=== PATIENT | female | born 1950 | race Caucasian/White ===

== ENCOUNTER 2021-03-23 13:30 | Outpatient (REF) | payer MEDICARE, SELFPAY ==
--- NOTE | ~2021-03-23 | XR_ITS ---
EXAMINATION: XR LUMBOSACRAL SPINE CLINICAL INFORMATION: Low back pain COMPARISON: None TECHNIQUE: Three views of the lumbosacral spine. FINDINGS: Bone alignment is normal. No fracture or dislocation is seen. There is degenerative disc disease at L5-S1. There is lower lumbar spine facet arthritis. XR/XR lumbar spine 2-3V IMPRESSION: Degenerative changes.
== END 2021-03-23 13:31 | disposition home or self-care (01) ==
LOC: HO.XRAY 13:30
PROVIDERS: Absent Provider Internal Medicine; PCP Internal Medicine; Visit Provider Family Medicine
DX: M54.50 Low back pain, unspecified (principal)
CPT/HCPCS: 72100

== ENCOUNTER 2021-04-03 14:12 | Outpatient (REF) | payer MEDICARE, SELFPAY ==
--- NOTE | ~2021-04-03 | FL_ITS ---
EXAMINATION: MODIFIED BARIUM SWALLOW CLINICAL INFORMATION: Fragile esophageal dysphagia. COMPARISON: None TECHNIQUE: Modified barium swallow was performed in lateral fluoroscopy in presence of speech therapist. FINDINGS: Following oral administration of various consistencies of thin, thick barium, puree, pudding chicken coated with barium and barium cookie, there is normal oral mastication with propagation of bolus from the oral cavity through the pharynx into the upper esophagus without any evidence of obstruction or narrowing. Mild degenerative disc changes with ventral spondylosis seen C3-C4, C4-C5, C5-C6 disc levels. No lytic or sclerotic process seen. FLUOROSCOPY TIME: 0.9 minutes DOSE AREA PRODUCT: 0.659 uGy-m2 (microgray-meter squared) FL/FL barium swallow modified IMPRESSION: 1. Unremarkable modified barium examination. 2. Correlate with speech therapy results.
--- NOTE | 2021-04-04 17:34 | MHC.SL.IMP ---
Date of Plan of Treatment: 04/03/21 Onset of Symptoms/Illness: 04/03/21 Date Treatment Started: 04/03/21 Admitting Diagnosis: Hypertension Asthma Arthritis Gallbladder removed Stones Tubal ligation High cholesterol Primary Speech & Language Diagnosis: R13.12 Oropharyngeal Phase Dysphagia Reason for Today's Visit: 68097 Modified Barium Swallow Study Pre-evaluation Dietary Consistencies: Regular Pre-evaluation Liquid Consistency: Thin Pre-evaluation Medication Administration: Whole with Liquid Medical History: Modified Barium Swallow Study Fluoroscopic Evaluation of Swallowing Function CPT Code 98603 Evaluation Year: 2020 Reason for Study: Patient reports difficulty swallowing rice and meat. Referring Physician: Alexandra Marie M.D. Evaluating Clinician: Shefali Rojas M.A., CCC-ESOL TEACHER ASSISTANT Study Number: 1 Patient Name: Milagros Wright Status: Outpatient, Ambulatory Age: 70 Gender: Female MEDICAL HISTORY: Year of Onset or Diagnosis: 2020 Comorbidities: Hypertension Asthma Arthritis Gallbladder removed Stones Tubal ligation High cholesterol Current (pre-evaluation) Intake/Diet: Route: PO Diet Grade: Regular Liquid Consistencies: Thin Pre-Study Functional Oral Intake Scale (FOIS): 7- Total oral intake with no restrictions Pain: None reported at time of study SUBJECTIVE: Patient is a 70 year old female who was referred for a modified barium swallow study by Dr. Alexandra Marie. She attended this exam unaccompanied. Patient reports onset of dysphagia ?years ago,? but was unable to specify a specific time. Patient reported difficulty swallowing certain solids, such as meats and rice. She stated that she must ?swallow many times,? or ?drink water.? Patient denies any difficulty swallowing liquids. Oral Motor Exam Facial Symmetry: Symmetrical Mouth Occlusion: Normal Oral-Facial Teeth Characteristics: Dental Appliance Oral-Facial Lip Pucker Description: Normal Oral-Facial Smile (Lips) Description: Normal Oral-Facial Puff Cheeks Description: Normal Tongue Size: Normal Tongue Frenum Length: Normal Tongue Excursion Description: Normal Tongue Range of Movement Description: Normal Tongue Speed of Movement Description: Normal Tongue Strength of Movement (against opposing pressure): Normal Tongue Movement Characteristics: Normal/Absent Is patient able to manage secretions?: Yes Food and Liquid Trials: Oral Impairment: Lip Closure: Did not test Oral Impairment: Tongue Control During Bolus Hold: 0=Cohesive bolus between tongue to palatal seal Oral Impairment: Bolus Preparation/Mastication: 1=Slow prolonged chewing/mashing with complete re-collection Oral Impairment: Bolus Transport/Lingual Motion: 3=Repetitive/disorganized tongue motion Oral Impairment: Oral Residue: 2=Residue collection on oral structures Oral Impairment:Initiation of Pharyngeal Swallow: 2=Bolus head at posterior laryngeal surface of epiglottis Pharyngeal Impairment: Soft Palate Elevation: 0=No bolus between soft palate (SP)/pharyngeal wall (PW) Pharyngeal Impairment: Laryngeal Elevation: 0=Complete superior movement of thyroid cartilage (see description) Pharyngeal Impairment: Anterior Hyoid Excursion: 0=Complete anterior movement Pharyngeal Impairment: Epiglottic Movement: 0=Complete inversion Pharyngeal Impairment: Laryngeal Vestibular Closure:: 0=Complete: no air/contrast in laryngeal vestibule Pharyngeal Impairment: Pharyngeal Stripping Wave: 0=Present: complete Pharyngeal Impairment: Pharyngeal Contraction: Did not test Pharyngeal Impairment: Pharyngoesophageal Segment Openin=Complete distension and complete duration: no obstruction of flow Pharyngeal Impairment: Tongue Base (TB) Retraction: 2=Narrow column of contrast/air between TB and posterior PW Pharyngeal Impairment: Pharyngeal Residue: 0=Complete pharyngeal clearance Pharyngeal Impairment: Esophageal Clearance Upright Position: Did not test Impressions and Recommendations Clinical Observations: OBJECTIVE: Time-out: performed at 02:45 Evaluation Start: 02:30; Stop: 02:40 Patient Positioning: Seated/Reclined less than 70 degrees Viewing Planes: LATERAL ONLY Contrast: MBSImP? Standardized Protocol using commercially prepared, standardized Barium viscosities, including: Varibar? THIN LIQUID (40% w/v, <15 cps) , 1/2 Shortbread Cookie (1 x1 x.25 ) MBSImP ID: [id number] MBSImP Results: Lip closure for intraoral bolus containment could not be assessed due to logistical reasons not related to physiologic impairment. Tongue control during bolus hold maintained a cohesive bolus held between tongue to palate seal. Bolus preparation and mastication resulted in slow, prolonged chewing/mashing but with complete re-collection. Bolus transport/lingual motion was with repetitive/disorganized motion of the tongue. Oral residue was a collection on oral structures. Initiation of the pharyngeal swallow occurred as the bolus head was at the posterior laryngeal surface of the epiglottis. Soft palate elevation resulted in no bolus between the soft palate and the pharyngeal wall. Laryngeal elevation demonstrated complete superior movement of the thyroid cartilage with complete approximation of the arytenoids to the epiglottic petiole. Anterior hyoid excursion demonstrated complete anterior movement. Epiglottic movement resulted in complete inversion. Laryngeal vestibular closure was complete, as indicated by no air or contrast within the laryngeal vestibule at the height of the swallow. Pharyngeal stripping wave was present and complete. Pharyngeal contraction could not be determined due to logistical reasons not related to physiologic impairment. Pharyngoesophageal segment opening was completely distended for complete duration with no obstruction of bolus flow. Tongue base retraction allowed a narrow column of contrast or air between the retracted tongue base and the posterior pharyngeal wall. Pharyngeal residue was not present. There was complete pharyngeal clearance. Esophageal clearance in the upright position could not be assessed due to logistical reasons not related to physiologic impairment. Oral Impairment Score: 8 (absence of score, component 1) Pharyngeal Impairment Score: 2 (absence of score, component 13) Esophageal Impairment Score: --- (absence of score, component 17) Laryngeal Penetration and Aspiration: Neither penetration nor aspiration was observed in today's study with Cookie, Thin. ASSESSMENT: Clinician Assessment: This exam was conducted by a multidisciplinary team which included a speech language pathologist, radiologist, and mobile sales technician. Patient was seated upright at 90 degree position in a chair for lateral view only. Patient fed herself without difficulty. She trialed 5 mL thin liquid barium, sequential cup sip thin liquid barium, pureed solid (mixture applesauce with barium paste), and regular solid (Mona Doone cookie coated with barium paste). Patient formed cohesive bolus between tongue to palatal seal with no anterior or posterior escape of bolus. Note mildly prolonged mastication and piecemeal deglutition pattern with multiple posterior tongue movements to clear oral cavity of bolus. Mild oral residue cleared with additional spontaneous swallow. Pharyngeal swallow trigger initiated when bolus head reached posterior laryngeal surface of epiglottis. No nasopharyngeal reflux. Complete superior movement of thyroid cartilage with complete anterior hyoid movement and complete epiglottic inversion. Complete laryngeal vestibular closure. Complete pharyngeal clearance and complete distention/ complete duration with no obstruction of flow through pharyngoesophageal segment opening. No evidence of aspiration or penetration with solids and liquids during this exam. Liquid Intake Recommendation: Thin Liquid Intake Strategies: Small Sips Dietary Recommendations: Regular Medication Administration: Whole with Liquid Compensatory Strategies Recommended: Sitting Upright (90 deg) Double Swallow Small Bites and Sips Alternate Liquids/Solids Rate of Ingestion Change Supervision during eating and or drinking: None Needed Recommendation for Speech Therapy: NA:Typical Evaluation Text Comment: PLAN: Intake Recommendations: Route: PO Diet Grade: Regular Liquid Consistencies: Thin Post-Study Functional Oral Intake Scale (FOIS): 7- Total oral intake with no restrictions No evidence of aspiration or penetration during this exam. Good oral and pharyngeal clearance. Recommend patient to resume unmodified textures regular solids and thin liquids. Therapy Recommendations: Therapy will be discontinued Prognosis for Improvement: The prognosis for the patient to meet nutritional needs by mouth is excellent based on degree of impairment. Clinician - Supplemental, Miscellaneous Communication: It is important to note MBSS objective studies are snapshots in time and Patient function might vary with factors such as time of day or concomitant medical conditions. For this reason, the final treatment plan for this patient should rest with their medical care team. Additional recommendations should be considered with the totality of the Patient in mind. Thank for the opportunity to participate in the care of this patient. If you have any questions about the content of this report, please contact the [facility] at [facility], [place]. Education: Education regarding findings from today's study and plans for therapy were provided to Patient only through Verbal Instruction. Understanding was expressed by the Patient only. ? Tug Master Clinician/Clinical Fellow: No Supervisory Statement: N/A Speech Language Pathologist: Shefali Rojas M.A., [facility]-ESOL TEACHER ASSISTANT
== END 2021-04-03 14:13 | disposition home or self-care (01) ==
LOC: HO.XRAY 14:12
PROVIDERS: Visit Provider Internal Medicine
DX: R13.14 Dysphagia, pharyngoesophageal phase (principal)
CPT/HCPCS: 74230; 92611

== ENCOUNTER → 2021-06-14 08:48 | Outpatient (BNVA) | payer MEDICARE, SELFPAY | PROVIDERS: PCP Internal Medicine; Referring Provider Internal Medicine; Visit Provider Surgery | DX: Z12.11 Encounter for screening for malignant neoplasm of colon (principal) | CPT/HCPCS: 99202 ==

== ENCOUNTER 2021-08-03 11:17 | Outpatient (REF) | payer OTHER, SELFPAY ==
--- NOTE | ~2021-08-03 | US_ITS ---
EXAMINATION: US RETROPERITONEAL COMPLETE (RENAL) CLINICAL INFORMATION: Microscopic hematuria.. COMPARISON: None TECHNIQUE: Real-time imaging of the kidneys and bladder. FINDINGS: RIGHT KIDNEY: 9.1 x 4.1 x 4.8 cm (SAG x AP x TRV). The kidney is normal in size, contour, and echogenicity. Renal cortical thickness is normal. No calculi or focal parenchymal lesions. No hydronephrosis. There is anechoic cyst measuring 0.6 x 0.4 x 0.3 cm in midpole. LEFT KIDNEY: 11.8 x 5.1 x 4.7 cm cm (SAG x AP x TRV). The kidney is normal in size, contour, and echogenicity. Renal cortical thickness is normal. No calculi or focal parenchymal lesions. No hydronephrosis. There is a complex anechoic cyst with echogenic debris measuring 4.0 x 4.0 x 4.0 cm in the midpole. There is a 1.4 x 1.1 x 1.0 cm simple cyst midpole. BLADDER: Well distended and normal. Bilateral ureteral jets are demonstrated. Prevoid bladder volume is 320 mL. Postvoid bladder volume is 6.4 mL. There are a few echogenic foci with shadowing adjacent to the bladder likely related to the uterus. US/US retroperitoneal comp IMPRESSION: Bilateral renal cysts. The largest cyst midpole left kidney is complex measuring 4.0 cm. No echogenic stones or hydronephrosis. Tiny postvoid residual bladder volume. Normal bilateral ureteral jets seen.
== END 2021-08-03 11:18 | disposition home or self-care (01) ==
LOC: HO.US 11:17
PROVIDERS: Visit Provider Family Medicine
DX: R31.29 Other microscopic hematuria (principal)
CPT/HCPCS: 76770

== ENCOUNTER 2021-08-18 06:33 | Day surgery (SDC) | payer OTHER, SELFPAY ==
--- NOTE | 2021-08-17 10:58 | P.CONAN_ITS ---
Documented by User: China Tena NP 08/17/21 10:59 HPI - Anesthesia Eval Consult details Narrative: 71yo F for Colonoscopy, Possible Polypectomy PMFSH Active Problems Active Problems: All Active Problems (Updated 08/14/21 @ 12:47 by Edna Stokes, RN) Colon cancer screening (Acute) Hypertension (Acute) Morbid obesity with body mass index (BMI) of 40.0 or higher (Acute) Hyperlipidemia (Acute) Past Medical History Medical History Asthma Colon cancer screening GERD (gastroesophageal reflux disease) History of positive PPD Hyperlipidemia Hypertension Morbid obesity with body mass index (BMI) of 40.0 or higher Sleep apnea Family History Family History Mother Bone cancer Surgical History Surgical History History of tubal ligation Hx of cholecystectomy Hx of colonoscopy Social History Social History Advance Directives: No Advance Directives Information Provided: Yes Meds Allergies Allergy/AdvReac Type Severity Reaction Status Date / Time Seafood Allergy Severe DIFF.BREATHING, Uncoded 08/14/21 12:51 Itching, edema eggs Allergy Unknown Nausea, Uncoded 08/14/21 12:51 dizzy, itching SHELLFISH Allergy Unknown Unknown Uncoded 08/14/21 12:51 Home Medications Medication Instructions Recorded Confirmed Last Taken Type albuterol sulfate mg INHALATION QID PRN 06/14/21 06/14/21 Unknown History aspirin 81 mg tablet,delayed 81 mg PO DAILY 06/14/21 08/14/21 Unknown History release atorvastatin 40 mg tablet 40 mg PO BEDTIME 06/14/21 08/14/21 Unknown History cholecalciferol (vitamin D3) 50 50 mcg PO DAILY 06/14/21 08/14/21 Unknown History mcg (2,000 unit) capsule (Vitamin D3) famotidine 20 mg tablet 20 mg PO DAILY 06/14/21 08/14/21 Unknown History fluticasone propionate 110 2 puff PO BID 06/14/21 08/14/21 Unknown History mcg/actuation HFA aerosol inhaler (Flovent HFA) hydrochlorothiazide 12.5 mg capsule 12.5 mg PO DAILY 06/14/21 08/14/21 Unknown History lisinopril 40 mg tablet 40 mg PO DAILY 06/14/21 08/14/21 Unknown History loratadine 10 mg tablet 10 mg PO DAILY 06/14/21 08/14/21 Unknown History montelukast 10 mg tablet 10 mg PO QPM 06/14/21 08/14/21 Unknown History timolol maleate 0.5 % eye drops 1 drp OPHTHALMIC-RIGHT QAM 06/14/21 08/14/21 Unknown History latanoprost 0.005 % eye drops 1 drp OPHTHALMIC (EYE) BEDTIME 08/14/21 08/14/21 Unknown History Exam Exam Date and Time: August 17, 20211057 Assessment and Plan Assessment Anesthesia Assessment: Chart Reviewed Documented by User: Charu Chan MD 08/18/21 07:15 [facility] Past Medical History Medical History Asthma Colon cancer screening GERD (gastroesophageal reflux disease) History of positive PPD Hyperlipidemia Hypertension Morbid obesity with body mass index (BMI) of 40.0 or higher Sleep apnea Functional capacity: independent ambulation Patient : No Family History Family History Mother Bone cancer Family history of problems with anesthesia: No Surgical History Surgical History History of tubal ligation Hx of cholecystectomy Hx of colonoscopy History of Problems with Anesthesia: No Social History Social History Advance Directives: No Advance Directives Information Provided: Yes Meds Allergies Allergy/AdvReac Type Severity Reaction Status Date / Time Seafood Allergy Severe DIFF.BREATHING, Uncoded 08/14/21 12:51 Itching, edema eggs Allergy Unknown Nausea, Uncoded 08/14/21 12:51 dizzy, itching SHELLFISH Allergy Unknown Unknown Uncoded 08/14/21 12:51 Home Medications Medication Instructions Recorded Confirmed Last Taken Type albuterol sulfate mg INHALATION QID PRN 06/14/21 06/14/21 Unknown History aspirin 81 mg tablet,delayed 81 mg PO DAILY 06/14/21 08/14/21 Unknown History release atorvastatin 40 mg tablet 40 mg PO BEDTIME 06/14/21 08/14/21 Unknown History cholecalciferol (vitamin D3) 50 50 mcg PO DAILY 06/14/21 08/14/21 Unknown History mcg (2,000 unit) capsule (Vitamin D3) famotidine 20 mg tablet 20 mg PO DAILY 06/14/21 08/14/21 Unknown History fluticasone propionate 110 2 puff PO BID 06/14/21 08/14/21 Unknown History mcg/actuation HFA aerosol inhaler (Flovent HFA) hydrochlorothiazide 12.5 mg capsule 12.5 mg PO DAILY 06/14/21 08/14/21 Unknown History lisinopril 40 mg tablet 40 mg PO DAILY 06/14/21 08/14/21 Unknown History loratadine 10 mg tablet 10 mg PO DAILY 06/14/21 08/14/21 Unknown History montelukast 10 mg tablet 10 mg PO QPM 06/14/21 08/14/21 Unknown History timolol maleate 0.5 % eye drops 1 drp OPHTHALMIC-RIGHT QAM 06/14/21 08/14/21 Unknown History latanoprost 0.005 % eye drops 1 drp OPHTHALMIC (EYE) BEDTIME 08/14/21 08/14/21 U nknown History Exam Airway Mallampati Class: III TM Dist: >3cm Neck ROM: Full Heart: RRR Lungs: CTA Assessment and Plan Final Anesthetic Review Family History of Problems with Anesthesia: No History of Problems with Anesthesia: No ASA Class: III Final Preanesthetic Review: No Changes in Pt Med Stat, Meds/Allgs Chart Reviewed, Consent Obtained/Reviewed and Anes Risks/Benef Reviewed Patient Risk: Low Procedure Risk: Low Anesthetic Plan Anesthetic Plan: MAC: Disposition: Standard PACU
[2021-08-18] VITALS (7 sets, daily range): BP systolic 97–150; BP diastolic 43–67; PULSE 65–101; RESP 14–18; TEMP 36.2–36.6; O2SAT 96–99; BMI 33.8
--- NOTE | 2021-08-18 08:13 | MHC.SHP ---
Pre-Procedural Eval Section A Date of Service: 08/18/21 Section B Chief Complaint: Screening Details of Present Illness: last colonoscopy was in 2009, referred for screening again Relevant Family History (Specify if Yes): No Relevant Social History: None Present Medications: see Short Stay Collaborative assessment Medical History: Significant History (HTN, obesity) History of Previous Operations: Relevant previous surgery/procedure and date(s) Allergies: Allergies Allergy/AdvReac Type Severity Reaction Status Date / Time Seafood Allergy Severe DIFF.BREATHING, Uncoded 08/14/21 12:51 Itching, edema eggs Allergy Unknown Nausea, Uncoded 08/14/21 12:51 dizzy, itching SHELLFISH Allergy Unknown Unknown Uncoded 08/14/21 12:51 Review of Systems Sugical H&P ROS: Negative: Constitution, Cardiovascular, Respiratory, Neurological, Psychiatric, Hem-Onc, Allergic/Immunologic, Gastrointestinal, Genitourinary, Musculoskeletal, Integumentary, Endocrine and Eyes/Ears/Nose/Throat Exam Surgical H&P Exam: Normal: HEENT, Normal: Heart, Normal: Lungs, Normal: Extremities, Normal: Abdomen, Normal: Skin and Normal: Neurological Plan Diagnosis/Plan: Unchanged I have reviewed the history and physical and performed a pertinent physical examination on my patient. No changes have occurred unless specified.
--- NOTE | 2021-08-18 09:43 | P.CONAN_ITS ---
[facility] Active Problems Active Problems: All Active Problems (Updated 08/14/21 @ 12:47 by Edna Stokes RN) Colon cancer screening (Acute) Hypertension (Acute) Morbid obesity with body mass index (BMI) of 40.0 or higher (Acute) Hyperlipidemia (Acute) Past Medical History Medical History Asthma Colon cancer screening GERD (gastroesophageal reflux disease) History of positive PPD Hyperlipidemia Hypertension Morbid obesity with body mass index (BMI) of 40.0 or higher Sleep apnea Functional capacity: independent ambulation Patient : No Family History Family History Mother Bone cancer Family history of problems with anesthesia: No Surgical History Surgical History History of tubal ligation Hx of cholecystectomy Hx of colonoscopy History of Problems with Anesthesia: No Social History Social History Patient Tobacco Use Status: Former Tobacco user Quit Date: 40 years ago Use of substances other than those prescribed or required for medical reasons: No Are you DNR?: No Advance Directives: No Advance Directives Information Provided: Yes Recently lost weight without trying: No Patient : No Meds Allergies Allergy/AdvReac Type Severity Reaction Status Date / Time Seafood Allergy Severe DIFF.BREATHING, Uncoded 08/14/21 12:51 Itching, edema eggs Allergy Unknown Nausea, Uncoded 08/14/21 12:51 dizzy, itching SHELLFISH Allergy Unknown Unknown Uncoded 08/14/21 12:51 Active Medications: Current Medications Albuterol Sulfate (Albuterol Sulfate (0.083%) 2.5 Mg/3 Ml Vial.Neb) 2.5 mg INHALE ONCE PRN PRN Reason: Shortness of Breath/Wheezing Lactated Ringer's (Lr) 1,000 mls @ 100 mls/hr IVCONT .Q10H [facility] Home Medications Medication Instructions Recorded Confirmed Last Taken Type albuterol sulfate mg INHALATION QID PRN 06/14/21 06/14/21 Unknown History aspirin 81 mg tablet,delayed 81 mg PO DAILY 06/14/21 08/14/21 Unknown History release atorvastatin 40 mg tablet 40 mg PO BEDTIME 06/14/21 08/14/21 Unknown History cholecalciferol (vitamin D3) 50 50 mcg PO DAILY 06/14/21 08/14/21 Unknown History mcg (2,000 unit) capsule (Vitamin D3) famotidine 20 mg tablet 20 mg PO DAILY 06/14/21 08/14/21 Unknown History fluticasone propionate 110 2 puff PO BID 06/14/21 08/14/21 Unknown History mcg/actuation HFA aerosol inhaler (Flovent HFA) hydrochlorothiazide 12.5 mg capsule 12.5 mg PO DAILY 06/14/21 08/14/21 Unknown History lisinopril 40 mg tablet 40 mg PO DAILY 06/14/21 08/14/21 Unknown History loratadine 10 mg tablet 10 mg PO DAILY 06/14/21 08/14/21 Unknown History montelukast 10 mg tablet 10 mg PO QPM 06/14/21 08/14/21 Unknown History timolol maleate 0.5 % eye drops 1 drp OPHTHALMIC-RIGHT QAM 06/14/21 08/14/21 Unknown History latanoprost 0.005 % eye drops 1 drp OPHTHALMIC (EYE) BEDTIME 08/14/21 08/14/21 Unknown History Exam Exam Date and Time: August 18, 2021 0943 Height,Weight and Vital Signs: Height 5 ft 1 in Weight 81.193 kg Last Vital Signs Temp 97.2 F 08/18/21 07:16 Pulse 101 H 08/18/21 07:16 Resp 18 08/18/21 07:16 BP 150/67 H 08/18/21 07:16 Pulse Ox 97 08/18/21 07:16 Airway Mallampati Class: III TM Dist: >3cm Neck ROM: Full Heart: RRR Lungs: CTA Assessment and Plan Final Anesthetic Review Family History of Problems with Anesthesia: No History of Problems with Anesthesia: No ASA Class: II Final Preanesthetic Review: No Changes in Pt Med Stat, Meds/Allgs Chart Reviewed, Consent Obtained/Reviewed and Anes Risks/Benef Reviewed Patient Risk: Low Procedure Risk: Low Anesthetic Plan Anesthetic Plan: MAC: Disposition: Standard PACU
--- NOTE | 2021-08-18 09:57 | W.PM.OPN ---
Operative Note Operative Note Date of Service: 08/18/21 Narrative: Preop diagnosis: Colon cancer screening Postop diagnosis: External hemorrhoids otherwise normal colonoscopy findings Procedure: Colonoscopy Surgeon: Mario Arzate MD The patient is a 71-year-old female referred to me for screening colonoscopy. Her last colonoscopy was in 2009. She understood the technique of the procedure. She was aware of the risks, benefits, and alternatives. She was brought to the operating room and placed in left lateral decubitus position under monitored anesthesia care. A full digital rectal exam was done. She did have large external hemorrhoids. There was no induration or any other lesions. The Olympus colonoscope was gently inserted into the anal orifice and advanced with insufflation all the way to the cecum. The cecum was intubated. The cecum was identified by visualization of the ileocecal valve as well as the appendiceal orifice. The cecal mucosa was unremarkable. The scope was gradually withdrawn with careful examination of the entire colonic mucosa being done with scope withdrawal. The patient had good bowel prep to was unlikely that any lesion may have been missed. The rectum was reached and there were no lesions seen. The anal canal and the anal shelf were unremarkable except for large external hemorrhoids. The scope was then withdrawn completely with desufflation. The patient tolerated procedure well. There were no complication noted. In view of her average risk for colon cancer, her next colonoscopy may be in the next 10 years is still in good health by then.
--- NOTE | 2021-08-18 10:23 | HO.POSTANES ---
Post Anesthesia Evaluation Post Anesthesia Evaluation Vital Signs: Vital Signs Temp Pulse Resp BP Pulse Ox 08/18/21 10:20 70 14 110/52 L 99 08/18/21 10:05 97.9 F 89 16 97/43 L 99 08/18/21 07:16 97.2 F 101 H 18 150/67 H 97 08/18/21 07:08 97.2 F 101 H 18 150/67 H 97 Anesthesia: Monitored Mental Status: Awake Pain Control: Satisfactory Nausea/Vomiting: None Hydration: Adequate Anesthesia-Related Issues: No Anes. Related Issues
== END 2021-08-18 11:41 | disposition home or self-care (01) ==
PROVIDERS: PCP Family Medicine; Visit Provider Surgery
PROC: 0DJD8ZZ Inspection of Lower Intestinal Tract, Via Natural or Artificial Opening Endoscopic (ICD-10-PCS; CPT 45378; principal; 2021-08-18 09:20)
DX: K21.9 Gastro-esophageal reflux disease without esophagitis (principal); Z12.11 Encounter for screening for malignant neoplasm of colon; Z86.010 Personal history of colon polyps; K64.4 Residual hemorrhoidal skin tags; J45.909 Unspecified asthma, uncomplicated; I10 Essential (primary) hypertension; E78.5 Hyperlipidemia, unspecified; E66.01 Morbid (severe) obesity due to excess calories; Z68.41 Body mass index [BMI] 40.0-44.9, adult; Z79.82 Long term (current) use of aspirin; Z79.51 Long term (current) use of inhaled steroids; Z79.52 Long term (current) use of systemic steroids; Z79.899 Other long term (current) drug therapy; Z87.891 Personal history of nicotine dependence
CPT/HCPCS: G0105

== ENCOUNTER 2021-08-31 08:23 | Outpatient (REF) | payer OTHER, SELFPAY ==
[2021-08-31 08:41] LABS: MANUAL DIFF FLAG NO
[2021-08-31 09:56] LABS: Basophils Absolute Auto 0.1 X10*3/uL (0.0-0.2); Basophils Percent Auto 0.9 % (0-2); Eosinophils Absolute Auto 0.4 X10*3/uL (0.0-0.4); Eosinophils Percent Auto 6.8 % (0-4); Hematocrit 41.8 % (37.0-47.0); Hemoglobin 13.3 g/dl (12.0-16.0); Imm Gran Abs Auto 0.03 X10*3/uL (0.00-0.03); Imm Gran Pct Auto 0.5 % (0.0-0.4); Lymphocytes Absolute Auto 1.9 X10*3/uL (1.2-4.9); Lymphocytes Percent Auto 32.8 % (20-40); Mean Corpuscular HGB Conc 31.8 g/dl (31.0-35.0); Mean Corpuscular Hemoglobin 29.4 pg (27.0-33.0); Mean Corpuscular Volume 92.3 fL (80.0-98.0); Monocytes Absolute Auto 0.6 X10*3/uL (0.1-1.2); Monocytes Percent Auto 10.2 % (2-11); Neutrophils Absolute Auto 2.8 x10*3/uL (2.0-8.3); Neutrophils Percent Auto 48.8 % (45-73); Platelet Count 194 X10*3/uL (160-400); Red Blood Count 4.53 X10*6/uL (4.20-5.50); Red Cell Distribution Width 13.7 % (11.0-16.0); White Blood Count 5.7 X10*3/uL (4.8-10.8)
[2021-08-31 10:13] LABS: Alanine Aminotransferase 15 U/L (0-31); Albumin Level 3.8 g/dL (3.5-5.0); Alkaline Phosphatase 95 U/L (39-117); Anion Gap 13 (12-20); Aspartate Amino Transferase 13 U/L (5-31); Bilirubin Total 0.5 mg/dL (0.0-1.0); Blood Urea Nitrogen 16 mg/dL (9-16); Calcium 9.5 mg/dL (8.4-10.2); Carbon Dioxide 30 mmol/L (22-29); Chloride 105 mmol/L (96-108); Cholesterol 156 mg/dL; Estimated Glomerular Filt Rate > 60; Glucose Random 107 mg/dL (60-115); HDL Cholesterol 47 mg/dL; LDL Cholesterol Calculated 90 mg/dl; Potassium 4.6 mmol/L (3.3-5.1); Sodium 143 mmol/L (135-145); Total Protein 6.9 g/dL (6.5-8.0); Triglycerides 95 mg/dL
[2021-08-31 10:37] LABS: Thyroid Stimulating Hormone 1.48 uIU/mL (0.32-4.0)
== END 2021-08-31 08:24 | disposition home or self-care (01) ==
LOC: HO.LAB 08:23
PROVIDERS: PCP Internal Medicine; Visit Provider Internal Medicine
DX: Z00.00 Encounter for general adult medical examination without abnormal findings (principal); E78.00 Pure hypercholesterolemia, unspecified; H42 Glaucoma in diseases classified elsewhere; I10 Essential (primary) hypertension; R31.21 Asymptomatic microscopic hematuria
CPT/HCPCS: 36415; 80053; 80061; 84443; 85025

== ENCOUNTER → 2021-09-19 08:52 | Outpatient (BNVA) | payer OTHER, SELFPAY | PROVIDERS: PCP Internal Medicine | DX: N28.1 Cyst of kidney, acquired (principal) | CPT/HCPCS: 99202 ==

== ENCOUNTER 2022-02-20 08:18 | Outpatient (REF) | payer OTHER, SELFPAY ==
[2022-02-20 09:22] LABS: Alanine Aminotransferase 32 U/L (0-31); Albumin Level 3.4 g/dL (3.5-5.0); Alkaline Phosphatase 93 U/L (39-117); Anion Gap 16 (12-20); Aspartate Amino Transferase 13 U/L (5-31); Bilirubin Total 0.5 mg/dL (0.0-1.0); Blood Urea Nitrogen 20 mg/dL (9-16); Calcium 8.9 mg/dL (8.4-10.2); Carbon Dioxide 27 mmol/L (22-29); Chloride 103 mmol/L (96-108); Estimated Glomerular Filt Rate > 60; Glucose Random 95 mg/dL (60-115); Potassium 3.6 mmol/L (3.3-5.1); Sodium 142 mmol/L (135-145); Total Protein 6.3 g/dL (6.5-8.0)
== END 2022-02-20 08:19 | disposition home or self-care (01) ==
LOC: HO.LAB 08:18
PROVIDERS: PCP Internal Medicine; Visit Provider Internal Medicine
DX: E78.00 Pure hypercholesterolemia, unspecified (principal); I10 Essential (primary) hypertension; J45.909 Unspecified asthma, uncomplicated; N28.1 Cyst of kidney, acquired
CPT/HCPCS: 36415; 80053

== ENCOUNTER 2022-04-20 08:15 | Outpatient (REF) | payer OTHER, SELFPAY ==
--- NOTE | ~2022-04-20 | CT_ITS ---
EXAMINATION: CT ABDOMEN WITHOUT AND WITH CONTRAST CLINICAL INFORMATION: Acquired cyst of kidney. COMPARISON: Ultrasound 08/03/2021 TECHNIQUE: Contiguous axial thin section helical images of the abdomen were performed before and after the administration of oral contrast and 85 mL of Omnipaque 350 intravenous contrast. The data set was reformatted in the coronal and sagittal planes and reviewed on an independent workstation. This CT examination was performed using dose optimization techniques as appropriate, variously including the following: *Automated exposure control *Adjustment of mA and/or kV according to patient size (this includes techniques or standardized protocols for targeted exams where dose is matched to indication/reason for exam; i.e. extremities or head) *Use of iterative reconstruction technique DLP: 604 mGy-cm. FINDINGS: LUNG BASES: There are 3 mm nodules in the left lung base. Heart size is normal. There is small hiatal hernia. LIVER, GALLBLADDER, AND BILIARY TREE: The liver is normal size, contour and density. No focal lesion or intrahepatic ductal dilatation seen. The gallbladder has been surgically removed. PANCREAS: The pancreas is homogeneous in density. The peripancreatic fat borders are maintained normal. SPLEEN: The spleen is unremarkable. A small splenule is seen along the inferior tip. ADRENAL GLANDS AND KIDNEYS: Adrenal glands are normal and symmetrical. There are no radiopaque renal calculi. There is normal symmetrical cortical nephrograms with right kidney measuring 10.4 cm and left kidney measuring 10.5 cm. There is a nonenhancing cyst lower pole left kidney measuring 4.2 x 4.6 x 4.0 cm. It measures 15 Hounsfield units on the postcontrast exam and 7 Hounsfield units on precontrast exam. Postcontrast, there is good opacification of kidney pelvises, proximal and mid right ureter without any intraluminal filling defect. The left ureter is not visualized. BOWEL LOOPS: There is scattered stool and gas seen in colon without distention. The small bowel loops are normal caliber. The stomach is nondistended. LYMPH NODES: Normal. VASCULAR: The abdominal aorta is of normal caliber. BONES: No aggressive lytic or sclerotic process seen. Mild degenerative disc changes and ventral spondylosis seen lower dorsal spine. CT/CT abdomen wo/w IV con IMPRESSION: There is a nonenhancing cyst lower pole left kidney. On precontrasted its measures 7 Hounsfield units and postcontrast 15 Hounsfield units. No intrinsic or capsular enhancement seen. Otherwise both kidneys unremarkable. Evidence of previous cholecystectomy. Fleischner guidelines were followed.
[2022-04-20] MEDS: iohexoL 350 MG/ML 100 ML INFUS..BTL IV (09:39)
[2022-04-20 14:49] LABS: Creatinine POC 0.8 mg/dL (0.5-1.4); GFR POC > 60
== END 2022-04-20 08:16 | disposition home or self-care (01) ==
LOC: HO.CT 08:15
PROVIDERS: PCP Internal Medicine
DX: N28.1 Cyst of kidney, acquired (principal)
CPT/HCPCS: 74170; 82565; Q9967

== ENCOUNTER 2022-04-26 09:48 | Outpatient (REF) | payer OTHER, SELFPAY ==
[2022-04-26 17:53] LABS: Urine Cytology See Pathology rpt
== END 2022-04-26 09:49 | disposition home or self-care (01) ==
LOC: HO.LAB 09:48
PROVIDERS: PCP Internal Medicine; Visit Provider Nurse Practitioner Family
DX: N28.1 Cyst of kidney, acquired (principal); N20.0 Calculus of kidney; Z79.899 Other long term (current) drug therapy
CPT/HCPCS: 88112; 99212

== ENCOUNTER 2022-06-28 09:58 | Outpatient (REF) | payer OTHER, SELFPAY ==
[2022-06-28 10:16] LABS: MANUAL DIFF FLAG NO
[2022-06-28 10:29] LABS: Basophils Absolute Auto 0.1 X10*3/uL (0.0-0.2); Basophils Percent Auto 0.9 % (0-2); Eosinophils Absolute Auto 0.4 X10*3/uL (0.0-0.4); Eosinophils Percent Auto 5.8 % (0-4); Hematocrit 40.5 % (37.0-47.0); Hemoglobin 13.2 g/dl (12.0-16.0); Imm Gran Abs Auto 0.02 X10*3/uL (0.00-0.03); Imm Gran Pct Auto 0.3 % (0.0-0.4); Lymphocytes Absolute Auto 1.9 X10*3/uL (1.2-4.9); Lymphocytes Percent Auto 30.3 % (20-40); Mean Corpuscular HGB Conc 32.6 g/dl (31.0-35.0); Mean Corpuscular Hemoglobin 28.9 pg (27.0-33.0); Mean Corpuscular Volume 88.6 fL (80.0-98.0); Mean Platelet Volume 11.2 fL (9.4-12.3); Monocytes Absolute Auto 0.5 X10*3/uL (0.1-1.2); Neutrophils Absolute Auto 3.5 x10*3/uL (2.0-8.3); Neutrophils Percent Auto 54.7 % (45-73); Platelet Count 229 X10*3/uL (160-400); Red Blood Count 4.57 X10*6/uL (4.20-5.50); Red Cell Distribution Width 13.4 % (11.0-16.0); White Blood Count 6.3 X10*3/uL (4.8-10.8)
[2022-06-28 10:52] LABS: Alanine Aminotransferase 16 U/L (0-31); Albumin Level 3.8 g/dL (3.5-5.0); Alkaline Phosphatase 94 U/L (39-117); Anion Gap 11 (12-20); Aspartate Amino Transferase 16 U/L (5-31); Blood Urea Nitrogen 10 mg/dL (9-16); Calcium 8.7 mg/dL (8.4-10.2); Carbon Dioxide 29 mmol/L (22-29); Chloride 105 mmol/L (96-108); Cholesterol 146 mg/dL; Estimated Glomerular Filt Rate > 60; Glucose Random 93 mg/dL (60-115); HDL Cholesterol 42 mg/dL; LDL Cholesterol Calculated 86 mg/dl; Potassium 3.7 mmol/L (3.3-5.1); Sodium 141 mmol/L (135-145); Total Protein 6.9 g/dL (6.5-8.0); Triglycerides 93 mg/dL
[2022-06-29 05:22] LABS: HBc Num1 0.15 S/CO (0.00-0.79); Hepatitis A Antibody IgM 0.21 Index (0-0.79); Hepatitis B Core Antibody Nonreactive (Nonreactive); Hepatitis B Surface Antigen Negative (Negative); ~Hepatitis A Antibody IgM Nonreactive (Nonreactive); ~Hepatitis B Surface Antibody NONREACTIVE (Nonreactive); ~Hepatitis C Antibody Nonreactive (Nonreactive)
== END 2022-06-28 09:59 | disposition home or self-care (01) ==
LOC: HO.LAB 09:58
PROVIDERS: PCP Internal Medicine; Visit Provider Internal Medicine
DX: E78.00 Pure hypercholesterolemia, unspecified (principal); I10 Essential (primary) hypertension; R74.01 Elevation of levels of liver transaminase levels
CPT/HCPCS: 36415; 80053; 80061; 85025; 86704; 86706; 86709; 86803; 87340

== ENCOUNTER 2022-07-11 07:41 | Outpatient (REF) | payer OTHER, SELFPAY ==
--- NOTE | ~2022-07-11 | US_ITS ---
EXAMINATION: US RETROPERITONEAL LIMITED (RENAL ONLY) CLINICAL INFORMATION: Calculus of kidney. COMPARISON: CT abdomen without and with contrast 04/20/2022. Ultrasound retroperitoneal complete (renal) 08/03/2021. Ultrasound retroperitoneal limited (renal only) 01/25/2016. TECHNIQUE: Real-time imaging of the kidneys. FINDINGS: RIGHT KIDNEY: 9.6 x 4.9 x 4.9 cm (SAG x AP x TRV). The kidney is normal in size, contour, and echogenicity. Renal cortical thickness is normal. No renal calculi or hydronephrosis. 6 mm simple appearing upper pole cyst. LEFT KIDNEY: 11.4 x 5.2 x 4.9 cm (SAG x AP x TRV). The kidney is normal in size, contour, and echogenicity. Renal cortical thickness is normal. No renal calculi or hydronephrosis. There are two relatively simple appearing lower pole cysts, the largest measuring approximately 4 cm. US/US renal BI IMPRESSION: 1. No renal calculi or hydronephrosis of either kidney. 2. Bilateral relatively simple appearing renal cysts.
== END 2022-07-11 07:42 | disposition home or self-care (01) ==
LOC: HO.US 07:41
PROVIDERS: PCP Internal Medicine; Visit Provider Nurse Practitioner Family
DX: N20.0 Calculus of kidney (principal); N28.1 Cyst of kidney, acquired
CPT/HCPCS: 76775

== ENCOUNTER 2023-03-27 08:24 | Outpatient (REF) | payer OTHER, SELFPAY ==
--- NOTE | ~2023-03-27 | US_ITS ---
EXAMINATION: US RETROPERITONEAL LIMITED (RENAL ONLY) CLINICAL INFORMATION: Calculus of kidney. COMPARISON: Renal ultrasound 07/11/2022 and 08/03/2021. CT abdomen 04/20/2022. TECHNIQUE: Real-time imaging of the kidneys. FINDINGS: RIGHT KIDNEY: 10.1 x 4.6 x 5.2 cm (SAG x AP x TRV). The kidney is normal in size, contour, and echogenicity. Renal cortical thickness is normal. No calculi or focal parenchymal lesions. No hydronephrosis. LEFT KIDNEY: 11.5 x 4.6 x 3.8 cm (SAG x AP x TRV). The kidney is normal in size, contour, and echogenicity. Renal cortical thickness is normal. No renal calculi or hydronephrosis. At the lower pole medially, a 3.8 x 3.1 x 3.6 cm mildly complex cyst is seen with central suspended debris. US/US renal BI IMPRESSION: 1. No renal calculus or hydronephrosis is seen bilaterally. 2. A 3.8 cm mildly complex left renal cyst is seen with internal suspended debris. This has a likely benign appearance, correlating with the CT appearance of 04/20/2022 (5:253). No specific imaging follow-up is recommended.
== END 2023-03-27 08:25 | disposition home or self-care (01) ==
LOC: HO.US 08:24
PROVIDERS: PCP Internal Medicine; Visit Provider Nurse Practitioner Family
DX: N20.0 Calculus of kidney (principal)
CPT/HCPCS: 76775

== ENCOUNTER 2023-05-02 14:45 | Outpatient (AMB) | payer OTHER, SELFPAY ==
--- NOTE | 2023-05-02 14:56 | MHC.OFFVIS ---
Intake Intake Visit Reasons: 1yr follow up/US Intake Note: Patient is present for ultrasound follow up/Renal Cyst (imaging 03/27/23) Urology Medication: None Blood Thinner: None Farm Instructor Required: Yes Accompanied by: Self / Same As Patient Allergies Seafood Allergy (Severe, Uncoded 05/02/23 20:39) DIFF.BREATHING, Itching, edema eggs Allergy (Unknown, Uncoded 05/02/23 20:39) Nausea, dizzy, itching SHELLFISH Allergy (Unknown, Uncoded 05/02/23 20:39) Unknown Medication List - Last Reconciled 05/02/23 by KRISTEN Rdz- albuterol sulfate mg inhalation QID PRN albuterol sulfate 90 mcg/actuation (Ventolin HFA) 2 puffs PO QID PRN aspirin 81 mg PO DAILY atorvastatin 40 mg PO BEDTIME cetirizine 10 mg PO DAILY cholecalciferol (vitamin D3) (Vitamin D3) 50 mcg PO DAILY dorzolamide-timolol 22.3-6.8 mg/mL ophthalmic (eye) famotidine 20 mg PO DAILY fluticasone propion-salmeterol 250-50 mcg/dose (Wixela Inhub) 2 ea PO DAILY fluticasone propionate 110 mcg/actuation (Flovent HFA) 2 puffs PO BID fluticasone propionate 50 mcg/actuation sprays intranasal hydrochlorothiazide 12.5 mg PO DAILY latanoprost 0.005% 1 drp ophthalmic (eye) BEDTIME lisinopril 40 mg PO DAILY loratadine 10 mg PO DAILY montelukast 10 mg PO QPM timolol maleate 0.5% 1 drp ophthalmic-Right QAM HPI HPI Comments History of Present Illness Details Milagros is a pleasant 72 year old Romanian speaking patient of Dr. Ortiz. She has a past medical history of GERD, sleep apnea, asthma, hypertension, and hyperlipidemia. Patient presents to the office today for a follow up of her complex renal cyst. Recent renal imaging results reviewed with the patient today. Bilateral kidneys with calculi or hydronephrosis noted. At the lower left pole medially, a 3.8 x 3.1 x 3.6 cm mildly complex cyst is seen with central suspended debris. This has a likely benign appearance, correlating with the CT appearance of 04/20/2022. No specific imaging follow-up is recommended per radiology report. When asked she does report noting bilateral flank pain however during examination of the patient today no CVA tenderness noted discussed likely musculoskeletal as pain noted with palpation to lower back. She otherwise denies any bothersome urinary issues or concerns. She denies urinary urgency, urinary frequency, incontinence, nocturia, hematuria, dysuria, foul smelling urine, changes to urinary stream, fever, and or chills. She is happy with her current voiding parameters. In office urinalysis results reviewed with the patient today. [facility] Medical History Renal cyst, acquired, left GERD (gastroesophageal reflux disease) History of positive PPD Sleep apnea Asthma Colon cancer screening Hypertension Morbid obesity with body mass index (BMI) of 40.0 or higher Hyperlipidemia Surgical History Hx of cholecystectomy History of tubal ligation Hx of colonoscopy Family History Mother Bone cancer Social History Patient Tobacco Use Status: Former Tobacco user Quit Date: 40 years ago Review of Systems Const Reports as per HPI Eyes Reports no additional complaints ENT Reports no additional complaints Card Reports as per HPI Resp Reports as per HPI GI Reports no additional complaints Reports as per HPI Musc Reports no additional complaints Neuro Reports no additional complaints Psych Reports no additional complaints Endo Reports no additional complaints Gage/Lymph Reports no additional complaints Aller/Immun Reports no additional complaints Physical Exam Const General: cooperative, healthy appearing, comfortable, no acute distress, well developed, alert and awake Orientation/consciousness: patient oriented x3 Limitations: no limitations HEENT Head: Yes normal to inspection, Yes normocephalic and Yes atraumatic Ears: hearing grossly normal bilaterally Eyes General: appearance normal, both eyes and all related structures Neck Neck: Yes normal visual inspection and Yes trachea midline Chest Chest palpation & inspection: normal inspection of the chest Resp Effort & Inspection: normal respiratory effort and able to speak in complete sentences Cardio Rate: regular rate GI Inspection: Yes normal to inspection General: Yes no CVA tenderness Back/Spine/Pelvis Back: no CVA tenderness Skin General skin exam: no rashes or lesions noted Neuro General: patient oriented x3 Extrem General: Yes normal to inspection Psych Appearance: grossly normal and well kempt Mental Status: mental status grossly normal Speech and movement: Normal speech and movement present and Clear speech present Affect: normal affect Attitude: cooperative Thought process: Normal thought process present Thought content: Normal thought content present Insight: Fair insight present (Psych) Judgement: Fair judgement present (Psych) Results AMB Urinalysis, Automated UA Leukoctes 0 Vasu/uL Last Edit by [employer] on 05/02/23 15:14 UA Nitrite Negative Last Edit by [employer] on 05/02/23 15:14 UA Urobilinogen 0.2 mg/dL Last Edit by [employer] on 05/02/23 15:14 UA Protein 15 mg/dL Last Edit by [employer] on 05/02/23 15:14 UA pH 6.0 Last Edit by [employer] on 05/02/23 15:14 UA Blood 25 Jeremy/uL Last Edit by [employer] on 05/02/23 15:14 UA Specific [place] 1.015 Last Edit by [employer] on 05/02/23 15:14 UA Ketone Negative Last Edit by [employer] on 05/02/23 15:14 UA Bilirubin 0 mg/dL Last Edit by [employer] on 05/02/23 15:14 UA Glucose 0 mg/dL Last Edit by [employer] on 05/02/23 15:14 Results Reviewed Results Reviewed: Laboratory Last Values Urine pH (Auto) 6.0 05/02/23 14:59 Specific [place] (Auto) 1.015 05/02/23 14:59 Urine Protein (Auto) 15 mg/dL 05/02/23 14:59 Glucose (UA)(Auto) 0 mg/dL 05/02/23 14:59 Urine Ketones (Auto) Negative 05/02/23 14:59 Urine Blood (Auto) 25 Jeremy/uL 05/02/23 14:59 Urine Nitrite (Auto) Negative 05/02/23 14:59 Urine Bilirubin (Auto) 0 mg/dL 05/02/23 14:59 Urine Urobilinogen (Auto) 0.2 mg/dL 05/02/23 14:59 Leukocyte Esterase (Auto) 0 Vasu/uL 05/02/23 14:59 Date of Service: 03/27/23 EXAMINATION: US RETROPERITONEAL LIMITED (RENAL ONLY) FINDINGS: RIGHT KIDNEY: 10.1 x 4.6 x 5.2 cm (SAG x AP x TRV). The kidney is normal in size, contour, and echogenicity. Renal cortical thickness is normal. No calculi or focal parenchymal lesions. No hydronephrosis. LEFT KIDNEY: 11.5 x 4.6 x 3.8 cm (SAG x AP x TRV). The kidney is normal in size, contour, and echogenicity. Renal cortical thickness is normal. No renal calculi or hydronephrosis. At the lower pole medially, a 3.8 x 3.1 x 3.6 cm mildly complex cyst is seen with central suspended debris. IMPRESSION: 1. No renal calculus or hydronephrosis is seen bilaterally. 2. A 3.8 cm mildly complex left renal cyst is seen with internal suspended debris. This has a likely benign appearance, correlating with the CT appearance of 04/20/2022 (5:253). No specific imaging follow-up is recommended Assessment & Plan Assessment & Plan (1) Encounter for screening: Code(s): Z13.9 - Encounter for screening, unspecified (2) Renal cyst, acquired, left: Code(s): N28.1 - Cyst of kidney, acquired Plan In office urinalysis results reviewed with the patient today; as noted above. Recent renal imaging results reviewed with the patient today; as noted above. Patient denies any bothersome urinary issues or concerns. Patient reports be happy with current voiding parameters. Discussed at length potential causes for renal cysts. Discussed, educated, and stressed the importance of drinking water daily. Will obtain renal ultrasound in 1 year. Follow-up in 1 year with imaging to be completed prior; or sooner with any issues, concerns, and or questions. Orders: Orders AMB Urinalysis Automated Today Z13.9 - Encounter for screening, unspecified Patient Instructions: The patient had an opportunity to ask questions regarding the treatment plan. All questions were answered. Physical exam, labs, and imaging were discussed and reviewed in detail. As well as risks, benefits, and discussion of treatment choices. No major barriers to understanding were identified. The patient expressed understanding and agreement with the above treatment plan. The patient was made aware they should contact our office by phone for worsening of their current condition, the appearance of new symptoms, or with any questions or concerns. Compliance is encouraged with any medications and follow up testing that is ordered. It is a privilege to be allowed the opportunity to participate in? your urological care.? Again, if you have any questions or concerns If you have any questions or concerns please do not hesitate to contact me. The office is [phone]. This note is constructed using voice recognition software. While every effort has been made to ensure accuracy visual merchandising assistant errors may have been included. Yours sincerely, RIA Rdz Coding Level of Care Code Est Pt Level 3 (34813) Diagnoses Encounter for screening Z13.9 Renal cyst, acquired, left N28.1
== END 2023-05-02 15:39 | disposition home or self-care (01) ==
PROVIDERS: PCP Internal Medicine; Visit Provider Nurse Practitioner Family
DX: N28.1 Cyst of kidney, acquired (principal)
CPT/HCPCS: 99213

== ENCOUNTER → 2023-05-02 14:45 | Outpatient (BNVA) | payer OTHER, SELFPAY | PROVIDERS: Visit Provider Nurse Practitioner Family | DX: Z13.9 Encounter for screening, unspecified (principal); N28.1 Cyst of kidney, acquired | CPT/HCPCS: 81003; 99212 ==

== ENCOUNTER 2023-06-25 08:20 | Outpatient (REF) | payer OTHER, SELFPAY ==
[2023-06-25 10:05] LABS: Alanine Aminotransferase 16 U/L (0-31); Albumin Level 3.8 g/dL (3.5-5.0); Alkaline Phosphatase 109 U/L (39-117); Anion Gap 10 (12-20); Aspartate Amino Transferase 16 U/L (5-31); Bilirubin Total 0.5 mg/dL (0.0-1.0); Blood Urea Nitrogen 15 mg/dL (9-16); Calcium 9.2 mg/dL (8.4-10.2); Carbon Dioxide 28 mmol/L (22-29); Chloride 106 mmol/L (96-108); Cholesterol 141 mg/dL (<200); Estimated Glomerular Filt Rate > 60; Glucose Random 98 mg/dL (60-115); HDL Cholesterol 42 mg/dL (>40); LDL Cholesterol Calculated 80 mg/dL (<100); Potassium 3.4 mmol/L (3.3-5.1); Sodium 141 mmol/L (135-145); Total Protein 7.4 g/dL (6.5-8.0); Triglycerides 99 mg/dL (<150)
== END 2023-06-25 08:21 | disposition home or self-care (01) ==
LOC: HO.LAB 08:20
PROVIDERS: PCP Internal Medicine; Visit Provider Internal Medicine
DX: E78.00 Pure hypercholesterolemia, unspecified (principal); I10 Essential (primary) hypertension; R21 Rash and other nonspecific skin eruption
CPT/HCPCS: 36415; 80053; 80061

== ENCOUNTER 2024-04-27 08:32 | Outpatient (REF) | payer OTHER, SELFPAY ==
--- NOTE | ~2024-04-27 | US_ITS ---
CLINICAL HISTORY: N20.0 - Calculus of kidney US Renal Comparison: 03/27/2023 and 01/25/2016 ultrasounds Findings: Right kidney normal size and echotexture, 10.5 cm length. Left kidney normal size and echotexture, 11.4 cm length. No hydronephrosis or renal stone (mild fullness of left renal pelvis also present on prior exam). Tiny too small to characterize 6 mm anechoic right renal cortical lesion/cyst. Nonprogressive 3.2 x 3.1 x 4.2 cm mildly complex left renal cyst (of note, on the cine clips this cyst was incorrectly marked as a right-sided cyst) not requiring further follow-up/workup. IMPRESSION: 1. No evidence of hydronephrosis or renal stone. 2. Left renal cyst not requiring further follow-up/workup This document has been electronically signed by: Claudia Crane MD on 04/27/2024 10:46:48
== END 2024-04-27 08:33 | disposition home or self-care (01) ==
LOC: HO.US 08:32
PROVIDERS: PCP Internal Medicine; Visit Provider Nurse Practitioner Family
DX: N20.0 Calculus of kidney (principal)
CPT/HCPCS: 76775

== ENCOUNTER → 2024-04-27 08:33 | Outpatient (BNV) | payer OTHER, SELFPAY | PROVIDERS: PCP Internal Medicine; Visit Provider Radiology Diagnostic Radiology | DX: N28.1 Cyst of kidney, acquired (principal) | CPT/HCPCS: 76775 ==

== ENCOUNTER 2024-05-04 08:28 | Outpatient (AMB) | payer OTHER, SELFPAY ==
--- NOTE | 2024-05-04 09:13 | MHC.OFFVIS ---
Intake Visit Reasons: 1y/US(set) Intake Note: Patient is present for 1Y/ultrasound follow up Urology Medication: None ALLERGIES:NONE Blood Thinner: ASPIRIN Rubber Process Hand Required: Yes Rubber Process Hand Services: Rubber Process Hand Present Rubber Process Hand Name: [id number] Accompanied by: Self / Same As Patient Allergies Seafood Allergy (Severe, Uncoded 05/04/24 09:59) DIFF.BREATHING, Itching, edema eggs Allergy (Unknown, Uncoded 05/04/24 09:59) Nausea, dizzy, itching SHELLFISH Allergy (Unknown, Uncoded 05/04/24 09:59) Unknown Medication List - Last Reconciled 05/04/24 by KRISTEN Rdz- albuterol sulfate mg inhalation QID PRN albuterol sulfate 90 mcg/actuation (Ventolin HFA) 2 puffs PO QID PRN aspirin 81 mg PO DAILY atorvastatin 40 mg PO BEDTIME cetirizine 10 mg PO DAILY cholecalciferol (vitamin D3) (Vitamin D3) 50 mcg PO DAILY dorzolamide-timolol 22.3-6.8 mg/mL ophthalmic (eye) fluticasone propion-salmeterol 250-50 mcg/dose (Wixela Inhub) 2 ea PO DAILY fluticasone propionate 110 mcg/actuation (Flovent HFA) 2 puffs PO BID fluticasone propionate 50 mcg/actuation sprays intranasal latanoprost 0.005% 1 drp ophthalmic (eye) BEDTIME timolol maleate 0.5% 1 drp ophthalmic-Right QAM HPI Comments Details: Milagros is a pleasant 73 year old Yoruba speaking patient of Dr. Ortiz. She has a past medical history of GERD, sleep apnea, asthma, hypertension, and hyperlipidemia. Patient presents to the office today for a follow up of her complex renal cyst. Recent renal imaging results reviewed with the patient today. 05/16 bilateral kidneys with no evidence of hydronephrosis or nephrolithiasis. Left renal cysts not requiring further follow-up imaging and or workup. Nonprogressive mildly complex/renal cyst not requiring further follow-up imaging per radiology report. In discussion with the patient today she denies having had any bothersome urinary issues or concerns since her last office visit here. She denies urinary urgency, urinary frequency, incontinence, nocturia, hematuria, dysuria, foul smelling urine, changes to urinary stream, fever, and or chills. She is happy with her current voiding parameters. In office urinalysis results reviewed with the patient today. [facility] Medical History Renal cyst, acquired, left GERD (gastroesophageal reflux disease) History of positive PPD Sleep apnea Asthma Colon cancer screening Hypertension Morbid obesity with body mass index (BMI) of 40.0 or higher Hyperlipidemia Surgical History Hx of cholecystectomy History of tubal ligation Hx of colonoscopy Family History Mother Bone cancer Social History Patient Tobacco Use Status: Former Tobacco user Review of Systems Const Reports as per HPI Eyes Reports no additional complaints ENT Reports no additional complaints Card Reports as per HPI Resp Reports as per HPI GI Reports no additional complaints Reports as per HPI Musc Reports no additional complaints Neuro Reports no additional complaints Psych Reports no additional complaints Endo Reports no additional complaints Gage/Lymph Reports no additional complaints Aller/Immun Reports no additional complaints Physical Exam Const General: cooperative, healthy appearing, comfortable, no acute distress, well developed, alert and awake Orientation/consciousness: patient oriented x3 Limitations: no limitations HEENT Head: Yes normal to inspection, Yes normocephalic and Yes atraumatic Ears: hearing grossly normal bilaterally Eyes General: appearance normal, both eyes and all related structures Neck Neck: Yes normal visual inspection and Yes trachea midline Chest Chest palpation & inspection: normal inspection of the chest Resp Effort & Inspection: normal respiratory effort and able to speak in complete sentences Cardio Rate: regular rate GI Inspection: Yes normal to inspection General: Yes no CVA tenderness Back/Spine/Pelvis Back: no CVA tenderness Skin General skin exam: no rashes or lesions noted Neuro General: patient oriented x3 Extrem General: Yes normal to inspection Psych Appearance: grossly normal and well kempt Mental Status: mental status grossly normal Speech and movement: Normal speech and movement present and Clear speech present Affect: normal affect Attitude: cooperative Thought process: Normal thought process present Thought content: Normal thought content present Insight: Fair insight present (Psych) Judgement: Fair judgement present (Psych) Results AMB Urinalysis, Automated UA Leukoctes 0 Vasu/uL Last Edit by YON Gilliland on 05/04/24 09:46 UA Nitrite Negative Last Edit by YON Gilliland on 05/04/24 09:46 UA Urobilinogen 0.2 mg/dL Last Edit by YON Gilliland on 05/04/24 09:46 UA Protein 0 mg/dL Last Edit by Margarita Conrad CCM on 05/04/24 09:46 UA pH 6.0 Last Edit by Margarita Conrad [facility] on 05/04/24 09:46 UA Blood 25 Jeremy/uL Last Edit by Margarita Conrad [facility] on 05/04/24 09:46 UA Specific [place] 1.020 Last Edit by YON Gilliland on 05/04/24 09:46 UA Ketone Negative Last Edit by Margarita Conrad CCM on 05/04/24 09:46 UA Bilirubin 0 mg/dL Last Edit by Margarita Conrad [facility] on 05/04/24 09:46 UA Glucose 0 mg/dL Last Edit by Margarita Conrad [facility] on 05/04/24 09:46 Results Reviewed Results Reviewed: Laboratory Last Values Urine pH (Auto) 6.0 05/04/24 09:45 Specific [place] (Auto) 1.020 05/04/24 09:45 Urine Protein (Auto) 0 mg/dL 05/04/24 09:45 Glucose (UA)(Auto) 0 mg/dL 05/04/24 09:45 Urine Ketones (Auto) Negative 05/04/24 09:45 Urine Blood (Auto) 25 Jeremy/uL 05/04/24 09:45 Urine Nitrite (Auto) Negative 05/04/24 09:45 Urine Bilirubin (Auto) 0 mg/dL 05/04/24 09:45 Urine Urobilinogen (Auto) 0.2 mg/dL 05/04/24 09:45 Leukocyte Esterase (Auto) 0 Vasu/uL 05/04/24 09:45 Date of Service: 04/27/24 US Renal Comparison: 03/27/2023 and 01/25/2016 ultrasounds Findings: Right kidney normal size and echotexture, 10.5 cm length. Left kidney normal size and echotexture, 11.4 cm length. No hydronephrosis or renal stone (mild fullness of left renal pelvis also present on prior exam). Tiny too small to characterize 6 mm anechoic right renal cortical lesion/cyst. Nonprogressive 3.2 x 3.1 x 4.2 cm mildly complex left renal cyst (of note, on the cine clips this cyst was incorrectly marked as a right-sided cyst) not requiring further follow-up/workup. IMPRESSION: 1. No evidence of hydronephrosis or renal stone. 2. Left renal cyst not requiring further follow-up/workup Assessment & Plan Assessment & Plan (1) Renal cyst, acquired, left: Code(s): N28.1 - Cyst of kidney, acquired Category: Medical Plan In office urinalysis results reviewed with the patient today; as noted above. Recent renal imaging results reviewed with the patient today; as noted above. Patient denies any bothersome urinary issues or concerns. Patient reports be happy with current voiding parameters. Discussed at length potential causes for renal cysts. Discussed, educated, and stressed the importance of drinking water daily. Will obtain renal ultrasound in 1 year. Follow-up in 1 year with imaging to be completed prior; or sooner with any issues, concerns, and or questions. Orders: Orders AMB Urinalysis Automated Today Z13.9 - Encounter for screening, unspecified US renal BI 1 Year N28.1 - Cyst of kidney, acquired Patient Instructions: The patient had an opportunity to ask questions regarding the treatment plan. All questions were answered. Physical exam, labs, and imaging were discussed and reviewed in detail. As well as risks, benefits, and discussion of treatment choices. No major barriers to understanding were identified. The patient expressed understanding and agreement with the above treatment plan. The patient was made aware they should contact our office by phone for worsening of their current condition, the appearance of new symptoms, or with any questions or concerns. Compliance is encouraged with any medications and follow up testing that is ordered. It is a privilege to be allowed the opportunity to participate in? your urological care.? Again, if you have any questions or concerns If you have any questions or concerns please do not hesitate to contact me. The office is [phone]. This note is constructed using voice recognition software. While every effort has been made to ensure accuracy principal secretary errors may have been included. Yours sincerely, ABHINAV RdzP- Coding Level of Care Code Est Pt Level 3 (90027) Diagnoses Renal cyst, acquired, left N28.1
== END 2024-05-04 10:09 | disposition home or self-care (01) ==
PROVIDERS: PCP Internal Medicine; Visit Provider Nurse Practitioner Family
DX: N28.1 Cyst of kidney, acquired (principal); Z13.9 Encounter for screening, unspecified
CPT/HCPCS: 99213

== ENCOUNTER → 2024-05-04 08:28 | Outpatient (BNVA) | payer OTHER, SELFPAY | PROVIDERS: PCP Internal Medicine; Visit Provider Nurse Practitioner Family | DX: N28.1 Cyst of kidney, acquired (principal) | CPT/HCPCS: 81003; 99212 ==

== ENCOUNTER 2024-05-22 08:20 | Outpatient (REF) | payer OTHER, SELFPAY ==
--- OUTSIDE RECORDS SUMMARY | 2024-05-22 08:25 | XMS_ITS | Clinical Summary ---
Author Organization [facility] Address [address] [place] [address] Care Team Providers Care Belt Loop Cutter Name Role Phone Unavailable Primary Care Provider Unavailabl e Social History Tobacco Use Types Packs/Day Years Used Date Smoking Tobacco: Never Assessed Sex and Gender Information Value Date Recorded Sex Assigned at Not on file Gender Identity Not on file Sexual Orientation Not on file Plan of Treatment Upcoming Encounters Date Type Department Care Team ([facility] st Contact Info) Description 06/15/2024 9:30 AM EST [facility]ointment [facility] [address] [phone] Health Maintenance Due Date Last Done Comments COVID-19 Vaccine (#1) 1955 Pneumococcal Vaccine: 65+ Years (1 of 2 - PCV) 1954 DTaP,Tdap,and Td Vaccines (1 - Tdap) 07/05/1967 Zoster Vaccines (1 of 2) 07/05/1967 Colorectal Cancer Screening: Colonoscopy 03/25/2022 Depression Screening 03/25/2022 Falls Risk Assessment 03/25/2022 Hepatitis C Screening 03/25/2022 Osteoporosis Screening (Bone Density Screening) 03/25/2022 Social Influencers of Health Screening 03/25/2022 RSV Immunization Patients 60+ Years Old (1 - 1-dose 75+ series) 07/05/2023 Influenza Vaccine (#1) 2023 Breast Cancer Screening Discontinued 06/12/19 24, 06/07/2022, 06/05/2021, Additional history exists HIB Vaccines Aged Out No longer eligi ble based on patient's age to complete this topic HPV Vaccines Aged Out No longer eligi ble based on patient's age to complete this topic Hepatitis A Vaccines Aged Out No long er eligible based on patient's age to complete this topic Hepatitis B Vaccines Aged Out No long er eligible based on patient's age to complete this topic IPV Vaccines Aged Out No longer eligi ble based on patient's age to complete this topic MMR Vaccines Aged Out No longer eligi ble based on patient's age to complete this topic Meningococcal ACWY Vaccine Aged Out N o longer eligible based on patient's age to complete this topic RSV Immunization Patients Under 20 months Aged Out No longer eligible based on patient's age to complete this topic Varicella Vaccines Aged Out No longer eligible based on patient's age to complete this topic Procedures Procedure Name Priority Date/Time Associated Diagnosis Comments GABBIE SCREENING DIGITAL Routine 06/12/2023 2:04 PM EST Encounter for screening mammogram for malignant neoplasm of breast from Last 3 Months or Most Recently Relevant to Health Maintenance Results * GABBIE SCREENING DIGITAL (06/12/2023 2:04 PM EST) Anatomical Region Laterality Modality Mammography 06/12/2023 8:27 AM EST Narrative 06/12/2023 2:04 PM EST [facility] Diagnostic Imaging Department [address] [place], [place] [id number] Patient: ??TATO WRIGHT ?/Age/Sex: 1950 - 72 - F Unit#: ??[id number] ? Location/Status: ??SPDIMAM/REG CLI ? Mnemonic/Ordering Site: ??DIGSC/SPMAM Ordering Physician: ??ANNE NOVOA MD Gabbie Screening Digital - 06/12/23841 Report Status:Signed EXAM: Gabbie Screening Digital EXAM DATE AND TIME: 06/12/2023 8:42 AM HISTORY: ??Screening. Previous bilateral breast biopsies, pathology benign. Daughter had breast carcinoma at age 42. COMPARISON: ??06/07/22, 06/05/21, 06/02/20, 03/20/19 TECHNIQUE: Bilateral digital breast tomosynthesis was performed in the CC and MLO projections. Computer aided detection with [employer] 3D 3.1 was employed. TISSUE DENSITY: b. There are scattered areas of fibroglandular density. FINDINGS: A 10 mm circumscribed nodule is seen in the middle 9 to 10:00 position of the right breast, approximately 8 cm from the nipple, without associated microcalcifications. One or 2 adjacent circumscribed subcentimeter nodules are also seen in this area. Targeted ultrasound is recommended for further assessment. Lobulated asymmetry remains stable in the retroareolar area of the left breast, previously biopsied, with an adjacent biopsy marker. No grouped microcalc ifications or areas of architectural distortion are seen. Scattered round calcifications are without significant change. A biopsy marker is again seen in the upper outer right breast. The skin and vascularity are unremarkable. IMPRESSION: 1. Right breast nodule, for which targeted ultrasound is recommended. The patient will be called back. 2. Stable mammographic appearance of the left breast. No evidence of malignancy is seen. BI-RADS: ??Category 0: Incomplete - Need Additional Imaging Evaluation RECOMMENDATION(S): 1: Ultrasound follow-up RIGHT Dictating Physician: ??DEBO ARREOLA MD Electronically Signed by: ??DEBO ARREOLA MD Dic Date/Time: ??06/12/23 1402 Sign date/Time: ??06/12/23 1404 Procedure Note Debo Arreola MD - 12/09/2023 [facility] Diagnostic Imaging Department [address] [place] [id number] Patient: TATO WRIGHT /Age/Sex: 1950 - 72 - F Unit#: [id number] Location/Status: SPDIMAM/REG CLI Mnemonic/Ordering Site: [facility] Ordering Physician: ANNE NOVOA MD [facility] Screening Digital - 06/12/23841 Report Status:Signed EXAM: [facility] Screening Digital EXAM DATE AND TIME: 06/12/2023 8:42 AM HISTORY: Screening. Previous bilateral breast biopsies, pathologybenign. Daughter had breast carcinoma at age 42. COMPARISON: 06/07/22, 06/05/21, 06/02/20, 03/20/19 TECHNIQUE: Bilateral digital breast tomosynthesis was performed in the CCand MLO projections. Computer aided detection with [employer] 3D 3.1was employed. TISSUE DENSITY: b. There are scattered areas of fibroglandular density. FINDINGS: A 10 mm circumscribed nodule is seen in the middle 9 to 10:00 position ofthe right breast, approximately 8 cm from the nipple, without associated microcalcifications. One or 2 adjacent circumscribed subcentimeter nodulesare also seen in this area. Targeted ultrasound is recommended for further assessment. Lobulated asymmetry remains stable in the retroareolar area of the leftbreast, previously biopsied, with an adjacent biopsy marker. No groupedmicrocalc ifications or areas of architectural distortion are seen. Scatteredround calcifications are without significant change. A biopsy marker is againseen in the upper outer right breast. The skin and vascularity are unremarkable. IMPRESSION: 1. Right breast nodule, for which targeted ultrasound is recommended.The patient will be called back. 2. Stable mammographic appearance of the left breast. No evidence ofmalignancy is seen. BI-RADS: Category 0: Incomplete - Need Additional Imaging Evaluation RECOMMENDATION(S): 1: Ultrasound follow-up RIGHT Dictating Physician: DEBO ARREOLA MD Electronically Signed by: DEBO ARREOLA MD Dic Date/Time: 06/12/23 1402 Sign date/Time: 06/12/23 140 Anne Novoa MD IMG BI PROCEDURES from Last 3 Months or Most Recently Relevant to Health Maintenance
--- OUTSIDE RECORDS SUMMARY | 2024-05-22 08:25 | XMS_ITS | Encounter Summary ---
Author Organization [employer] [facility] Address [address] [place] [address] [address] [place] [address] Care Team Providers Care Mechanical Design Engineer Name Role Phone Unavailable Primary Care Provider Unavailabl e Reason for Visit * Reason Comments Med Refill Encounter Details Date Type Department Care Team (Late st Contact Info) Description 09/11/[address] [facility] MEDICINE [address] [place] [address] Nita Oliveira DO [address] [place] [address] Social History Tobacco Use Types Packs/Day Years Used Date Smoking Tobacco: Never Assessed Comments Unknown Sex and Gender Information Value Date Recorded Sex Assigned at Female 02/19/2022 10:14 AM EDT Legal Sex Female 10:14 AM EDT Gender Identity Female 02/19/2022 10:14 AM EDT Sexual Orientation Straight 02/19/2022 10 :14 AM EDT documented as of this encounter Plan of Treatment Upcoming Encounters Date Type Department Care Team (Late st Contact Info) Description 08/07/2024 1:00 PM EDT Office Visit [facility] ADULT DENTAL [address] [place] [address] Alba, Alcira [address] [place] [address] documented as of this encounter Visit Diagnoses Not on filedocumented in this encounter
--- OUTSIDE RECORDS SUMMARY | 2024-05-22 08:25 | XMS_ITS | Encounter Summary ---
Author Organization [facility] Address [address] [facility] 7t [place] [address] Care Team Providers Care Core Composer Machine Tender Name Role Phone Unavailable Primary Care Provider Unavailabl e Encounter Details Date Type Department Care Team (Latest Contact Info) Description 01/02/2022 Abstract [facility] CONVERSIONS Dental, Provider, DDS Social History Tobacco Use Types Packs/Day Years [...] Upcoming Encounters Date Type Department Care Team ( st Contact Info) Description 08/07/2024 1:00 PM EDT Office Visit [facility] ADULT DENTAL [address] [place] [address] Mark Willisaris [address] [place] [address] documented as of this encounter Visit Diagnoses Not on filedocumented in this encounter
--- OUTSIDE RECORDS SUMMARY | 2024-05-22 08:25 | XMS_ITS | Encounter Summary ---
Author Organization [facility] Address [address] [facility] 7t [place] [address] Care Team Providers Care Dental Appliance Repairer Name Role Phone Unavailable Primary Care Provider Unavailabl e Encounter Details Date Type Department Care Team (Latest Contact Info) Description 09/02/2018 Abstract [facility] CONVERSIONS Dental, Provider, DDS Social History [...] Description 08/07/2024 1:00 PM EDT Office Visit [facility] ADULT DENTAL [address] [place] [address] Mark Willisaris [address] [place] [address] documented as of this encounter Visit Diagnoses Not on filedocumented in this encounter
--- OUTSIDE RECORDS SUMMARY | 2024-05-22 08:25 | XMS_ITS | Encounter Summary ---
Author Organization [facility] Address [address] [place] [address] [address]t [place] [address] Care Team Providers Care Slash Trimmer Name Role Phone Unavailable Primary Care Provider Unavailabl e Reason for Visit * Reason Comments Med Refill Encounter Details Date Type Department Care Team (Late st Contact Info) Description 05/04/2022 Refill [facility] MED [facility] PEDS [address] [place] [address] Jensen Low MD [address] [place] [address] Social History Tobacco Use Types Packs/Day Years [...] Description 08/07/2024 1:00 PM EDT Office Visit [facility] ADULT DENTAL [address] [place] [address] Mark Willisaris [address] [place] [address] documented as of this encounter Visit Diagnoses Not on filedocumented in this encounter
--- OUTSIDE RECORDS SUMMARY | 2024-05-22 08:25 | XMS_ITS | Encounter Summary ---
Author Organization [facility] Address [address] [place] [address] 7t [place] [address] Care Team Providers Care Gymnastics Coach Name Role Phone Unavailable Primary Care Provider Unavailabl e Reason for Visit * Reason Comments Med Refill Encounter Details Date Type Department Care Team (Late st Contact Info) Description 05/29/2022 Refill [facility] MED & PEDS [address] [place] [address] Jensen Low MD [address] [place] [address] Social History Tobacco Use Types Packs/Day Years [...] Description 08/07/2024 1:00 PM EDT Office Visit [facility] ADULT DENTAL [address] [place] [address] Mark Willisaris [address] [place] [address] documented as of this encounter Visit Diagnoses Not on filedocumented in this encounter
--- OUTSIDE RECORDS SUMMARY | 2024-05-22 08:25 | XMS_ITS | Encounter Summary ---
Author Organization [employer] [facility] Address [address] [facility] [address]t [place] [address] Care Team Providers Care Supervisor Dumping Name Role Phone Unavailable Primary Care Provider Unavailabl e Encounter Details Date Type Department Care Team (Latest Contact Info) Description 10/12/2020 Abstract [facility] CONVERSIONS Dental, Provider, DDS Social History Tobacco [...] Description 08/07/2024 1:00 PM EDT Office Visit [facility] ADULT DENTAL [address] [place] [address] Mark Willisaris [address] [place] [address] documented as of this encounter Visit Diagnoses Not on filedocumented in this encounter
--- OUTSIDE RECORDS SUMMARY | 2024-05-22 08:25 | XMS_ITS | Encounter Summary ---
Author Organization [employer] [facility] Address [address] [place] [address] 7t [place] [address] Care Team Providers Care Billboard Erector Helper Name Role Phone Unavailable Primary Care Provider Unavailabl e Reason for Visit * Reason Comments Med Refill Encounter Details Date Type Department Care Team (Late st Contact Info) Description 05/08/2022 Refill [facility] MED [facility] PEDS [address] [place] [address] Jensen Low MD [address] [place] [address] Social History Tobacco Use Types Packs/Day Years [...] Description 08/07/2024 1:00 PM EDT Office Visit [facility] ADULT DENTAL [address] [place] [address] Mark Willisaris [address] [place] [address] documented as of this encounter Visit Diagnoses Not on filedocumented in this encounter
--- OUTSIDE RECORDS SUMMARY | 2024-05-22 08:26 | XMS_ITS | Clinical Summary ---
Author Organization [employer] Address [address] [facility] [address]t [place] [address] Care Team Providers Care Concrete Rubber Name Role Phone Unavailable Primary Care Provider Unavailabl e Allergies Active Allergy Reactions Criticality Noted Date Comments Shellfish Allergy Dizziness 05/22/2010 Medications Ventolin HFA 108 (90 Base) MCG/ACT inhaler INHALE 2 PUFFS BY MOUTH 4 TIMES DAILY NEEDED FOR ASTHMA 03/14/2022 Active atorvastatin (Lipitor) 40 MG tablet Take 40 mg by mouth at bedtime. 12/11/2022 Active dorzolamide-josh olol (Cosopt) 22.3-6.8 MG/ML ophthalmic solution INSTILL 1 DROP INTO RIGHT EYE TWICE DAILY (12 HOURS APART) 10/03/2022 Active hydroCHLOROthia zide (HYDRODiuril) 12.5 MG tablet 12/11/2022 Acti ve lisinopril 40 MG tablet Take 40 mg by mouth in the morning. 12/14/2022 Active Active Problems Problem Noted Date Diagnosed Date Dental plaque 02/05/2024 Staining (discoloration) of teeth 02/05/2024 Missing teeth, acquired 02/05/2024 Ill-fitting dentures 12/19/2023 History of tooth extraction 07/15/2023 Teeth hypercementosis 07/08/2023 Symptomatic irreversible pulpitis 2023 Dental caries 02/19/2023 Dental calculus 01/23/2023 Generalized gingival recession, moderate 023 Social History Tobacco Use Types Packs/Day Years Used Date Smoking Tobacco: Former Cigarettes Passive Smoke Exposure: Past Smokeless Tobacco: Never Tobacco Cessation:Counseling Given: Not Answered Alcohol Use Standard Drinks/Week Comments Defer 0 (1 standard drink = 0.6 oz pur e alcohol) Comments Unknown Sex and Gender Information Value Date Recorded Sex Assigned at Female 02/19/2022 10:14 AM EDT Legal Sex Female 10:14 AM EDT Gender Identity Female 02/19/2022 10:14 AM EDT Sexual Orientation Straight 02/19/2022 10 :14 AM EDT Last Filed Vital Signs Vital Sign Reading Time Taken Comments Blood Pressure 128/74 02/05/2024 10:04 AM EDT Pulse 76 12/19/2023 2:23 PM EDT Temperature - - Respiratory Rate - - Oxygen Saturation - - Inhaled Oxygen Concentration - - Weight 78.8 kg (173 lb 12.8 oz) 022 12:01 AM EST Height 154.9 cm (5' 1 ) 05/12/2021 12:0 1 AM EST Body Mass Index 32.84 05/12/2021 12:01 AM EST Plan of Treatment Upcoming Encounters Date Type Department Care Team (Late st Contact Info) Description 08/07/2024 1:00 PM EDT Office Visit [facility] ADULT DENTAL [address] [place] [address] Alba, Alcira [address] [place] [address] Health Maintenance Due Date Last Done Comments CT Colonography 1950 Colonoscopy 1950 Colorectal Cancer Screening 1950 Depression Screening 1950 FIT DNA/Cologuard 1950 FIT 1950 FOBT 1950 SDOH Screening 1950 Sigmoidoscopy 1950 Alcohol/Substance Use Screening 1960 Hepatitis C Screening 1966 RSV Patients and Patients Aged 60 years or older (1 - 1-dose 75+ series) 07/05/2023 COVID-19 Vaccine ( season) 2023 01/26/2022, 06/28/2021, 03/08/2021, Additional history exists Influenza Vaccine (#1) 2023 04/29/2018 Dental Oral Exam 08/06/2024 02/05/2024, 07/2022, 01/02/2022, Additional history exists Dental Prophylaxis 08/06/2024 02/05/2024, 1 , 01/02/2022, Additional history exists Tobacco Screening 02/04/2025 02/05/2024 Dental X-Ray: Bitewings 02/05/2025 02/05/20 24, 01/23/2023, 01/02/2022, Additional history exists Lipid Panel 12/21/2025 12/21/2020 Dental X-Ray: Full Mouth 01/24/2026 01/23/2023, 01/21 DTaP/Tdap/Td Vaccines (3 - Td or Tdap) 08/01/2032 08/01/2022, 05/27/2012, 11/02/1999, Additional history exists Hepatitis B Vaccines Completed 03/18/2007, 12/14/1999, 11/02/1999 Pneumococcal Vaccine: 50+ Years Completed 04/29/2018, 11/02/2016, 09/13/2015, Additional history exists Zoster Vaccines Completed 10/03/2022, 07/21, 08/15/2015 HIB Vaccines Aged Out No longer eligi [...] patient's age to complete this topic Meningococcal Vaccine Aged Out No dilip berenice eligible based on patient's age to complete this topic RSV under 20 months Aged Out No longe r eligible based on patient's age to complete this topic Rotavirus Vaccines Aged Out No longer eligible based on patient's age to complete this topic Procedures Procedure Name Priority Date/Time Associated Diagnosis Comments PROPHYLAXIS - ADULT Routine 02/05/2024 1 0:00 AM EDT Dental plaque BITEWINGS - 2 RADIOGRAPHIC IMAGES Routine 02/05/2024 10:00 AM EDT Generalized gingival recession, moderate Dental plaque Staining (discoloration) of teeth Missing teeth, acquired PERIODIC ORAL EVALUATION - ESTABLISHED PATIENT Routine 02/05/2024 10:00 AM EDT DIAGNOSTIC - DIAGNOSTIC IMAGING - INTRAORAL - COMPREHENSIVE SERIES OF RADIOGRAPHIC IMAGES Routine 01/23/2023 10:00 AM EDT Dental calculus Generalized gingival recession, moderate LIPID PANEL, STANDARD Routine 12/21/2020 8:37 AM EDT from Last 3 Months or Most Recently Relevant to Health Maintenance Results * LIPID PANEL, STANDARD (12/21/2020 8:37 AM EDT) Chol/HDLC Ratio 2.9 <5.0 (calc) [facility] Cholesterol, Total 145 <200 mg/dL [facility] HDL Cholesterol 50 > OR = 50 mg/dL [facility] LDL Cholesterol 76 mg/dL (calc) [facility] Comment: Reference range: <100 ?? Desirable range <100 mg/dL for primary prevention; ?? <70 mg/dL for patients with CHD or diabetic patients ?? with > or = 2 CHD risk factors. ?? LDL-C is now calculated using the Halima ?? calculation, which is a validated novel method providing ?? better accuracy than the Friedewald equation in the ?? estimation of LDL-C. ?? Marco DYKES et al. WILTON. 2013;310(19): 0617-2396 ?? (http://education.Arpeggi/faq/COQ990) Non-HDL Cholesterol 95 <130 mg/dL (calc) [facility] Comment: For patients with diabetes plus 1 major ASCVD risk ?? factor, treating to a non-HDL-C goal of <100 mg/dL ?? (LDL-C of <70 mg/dL) is considered a therapeutic ?? option. Triglycerides 105 <150 mg/dL [facility] 12/21/2020 8:37 AM EDT us Alexandra Marie MD LAB BLOOD ORDERABLES Final R esult [facility] [address] from Last 3 Months or Most Recently Relevant to Health Maintenance Insurance DENTAL - [employer] [facility]
[2024-05-22 08:33] LABS: MANUAL DIFF FLAG NO
[2024-05-22 08:55] LABS: Basophils Absolute Auto 0.1 X10*3/uL (0.0-0.2); Eosinophils Absolute Auto 0.2 X10*3/uL (0.0-0.4); Eosinophils Percent Auto 3.3 % (0-4); Hematocrit 40.5 % (37.0-47.0); Hemoglobin 13.3 g/dl (12.0-16.0); Imm Gran Abs Auto 0.02 X10*3/uL (0.00-0.03); Imm Gran Pct Auto 0.3 % (0.0-0.4); Lymphocytes Absolute Auto 1.6 X10*3/uL (1.2-4.9); Mean Corpuscular HGB Conc 32.8 g/dl (31.0-35.0); Mean Corpuscular Hemoglobin 29.4 pg (27.0-33.0); Mean Corpuscular Volume 89.4 fL (80.0-98.0); Mean Platelet Volume 10.8 fL (9.4-12.3); Monocytes Absolute Auto 0.5 X10*3/uL (0.1-1.2); Monocytes Percent Auto 7.9 % (2-11); Neutrophils Absolute Auto 3.7 x10*3/uL (2.0-8.3); Neutrophils Percent Auto 61.5 % (45-73); Platelet Count 218 X10*3/uL (160-400); Red Blood Count 4.53 X10*6/uL (4.20-5.50); Red Cell Distribution Width 13.3 % (11.0-16.0); White Blood Count 6.1 X10*3/uL (4.8-10.8)
[2024-05-22 09:37] LABS: Alanine Aminotransferase 24 U/L (0-31); Albumin Level 3.9 g/dL (3.5-5.0); Alkaline Phosphatase 109 U/L (39-117); Anion Gap 11 (12-20); Aspartate Amino Transferase 21 U/L (5-31); Bilirubin Total 0.7 mg/dL (0.0-1.0); Blood Urea Nitrogen 20 mg/dL (9-16); Calcium 9.8 mg/dL (8.4-10.2); Carbon Dioxide 30 mmol/L (22-29); Chloride 105 mmol/L (96-108); Cholesterol 137 mg/dL (<200); Estimated Glomerular Filt Rate > 60; Glucose Random 99 mg/dL (60-115); HDL Cholesterol 43 mg/dL (>40); LDL Cholesterol Calculated 78 mg/dL (<100); Potassium 4.3 mmol/L (3.3-5.1); Sodium 142 mmol/L (135-145); Total Protein 7.7 g/dL (6.5-8.0); Triglycerides 83 mg/dL (<150)
== END 2024-05-22 08:21 | disposition home or self-care (01) ==
LOC: HO.LAB 08:20
PROVIDERS: PCP Internal Medicine; Visit Provider Internal Medicine
DX: E78.00 Pure hypercholesterolemia, unspecified (principal); I10 Essential (primary) hypertension
CPT/HCPCS: 36415; 80053; 80061; 85025

== ENCOUNTER 2024-09-30 08:22 | Outpatient (AMB) | payer OTHER, SELFPAY ==
--- OUTSIDE RECORDS SUMMARY | 2024-09-30 08:29 | XMS_ITS | Encounter Summary ---
Author Organization [facility] Address [address] [place] [address] [address] [place] [address] Care Team Providers Care Port Warden Name Role Phone Unavailable Primary Care Provider Unavailabl e Reason for Visit * Reason Comments Med Refill Encounter Details Date Type Department Care Team (Late st Contact Info) Description 09/11/2022 Refill [facility] MEDICINE [address] [place] [address] Nita Oliveira DO [address] [place] [address] Social History Tobacco Use Types Packs/Day Years [...] Care Team (Late st Contact Info) Description 02/19/2025 8:00 AM EDT Office Visit [facility] ADULT DENTAL [address] [place] [address] Alba, Alcira [address] [place] [address] documented as of this encounter Visit Diagnoses Not on filedocumented in this encounter
[2024-09-30 09:08] VITALS: BP 128/78; BMI 29.7
--- NOTE | 2024-09-30 09:08 | MHC.OFFVIS ---
Vital Signs 09/30/24 09:08 Height 5 ft 1 in Weight 157 lb BMI 29.7 BP 128/78 Intake Visit Reasons: vaginal cyst Box Folding Machine Operator Required: Yes Box Folding Machine Operator Language: Lead Ios Developer Services: Box Folding Machine Operator Present (in person) Box Folding Machine Operator Name: Paola SAWYER Information Interpreted: non-clinical & clinical Proof Machine Operator Supervisor: Proof Machine Operator Supervisor Present (Paola SAWYER) Accompanied by: Self / Same As Patient Allergies Seafood Allergy (Severe, Uncoded 05/04/24 09:59) DIFF.BREATHING, Itching, edema eggs Allergy (Unknown, Uncoded 05/04/24 09:59) Nausea, dizzy, itching SHELLFISH Allergy (Unknown, Uncoded 05/04/24 09:59) Unknown HPI Comments Details: Presenting referred from PCP regarding left labial abscess. The patient developed to labial abscesses after perineal shaving which was treated with antibiotics by her PCP and absence resolved at the moment no residual complaints PFSH Medical History Renal cyst, acquired, left GERD (gastroesophageal reflux disease) History of positive PPD Sleep apnea Asthma Colon cancer screening Hypertension Morbid obesity with body mass index (BMI) of 40.0 or higher Hyperlipidemia Surgical History Hx of cholecystectomy History of tubal ligation Hx of colonoscopy Family History Mother Bone cancer Daughter Breast cancer Social History Patient Tobacco Use Status: Former Tobacco user Female Reproductive History Menstrual control method: none Total pregnancies: 4 Full term: 4 Number of Living Children: 4 Date of last pap smear: 04/27/22 Date of Mammogram: 06/05/24 History of abnormal mammogram: No Review of Systems Const All systems reviewed & are unremarkable except as noted in HPI and below Physical Exam Vital Signs: Last Vital Signs BP 128/78 09/30/24 09:08 BMI result Body Mass Index 29.7 General: Yes no CVA tenderness External Female Exam: normal external appearance and normal appearance of the urethra Speculum Exam - Vagina: normal appearance of the vagina, normal palpation, no lesions and no masses Speculum Exam - Cervix: normal appearance of the cervix, normal palpation, no lesions, no masses and nontender Bimanual exam- vagina & uterus: normal bimanual exam, normal palpation, uterine size normal, normal palpation, uterine shape normal, No Cervical tenderness present and non-tender Bimanual Exam- Adnexa, other: normal adnexae Back/Spine/Pelvis Back: no CVA tenderness Assessment & Plan Assessment & Plan (1) Labial abscess: Comment: Left side-resolved Code(s): N76.4 - Abscess of vulva Category: Medical Plan: Discussed with the patient the finding on pelvic exam resolved left labial abscess. Instructions given the patient to call in case of recurrence of her symptoms. All questions answered, the patient verbalized understanding. Coding Level of Care Code New Pt Level 3 (15000) Diagnoses Labial abscess N76.4
== END 2024-09-30 09:27 | disposition home or self-care (01) ==
LOC: HO.HWS 08:22
PROVIDERS: PCP Internal Medicine; Visit Provider Obstetrics & Gynecology
DX: N76.4 Abscess of vulva (principal)
CPT/HCPCS: 99203

== ENCOUNTER → 2024-09-30 08:22 | Outpatient (BNVA) | payer OTHER, SELFPAY | PROVIDERS: PCP Internal Medicine; Visit Provider Obstetrics & Gynecology | DX: N76.4 Abscess of vulva (principal) | CPT/HCPCS: 99202 ==

== ENCOUNTER 2024-11-10 09:50 | Outpatient (REF) | payer OTHER, SELFPAY ==
--- NOTE | ~2024-11-10 | XR_ITS ---
EXAMINATION: XR HIP, RIGHT CLINICAL INFORMATION: OA OF RIGHT HIP. COMPARISON: None available. TECHNIQUE: Two views of the right hip. FINDINGS: Joint space is congruent and preserved. Minimal acetabular roof osteophyte is present. Femoral head osteophytes are seen. There is no deformity. XR/XR hip RT min 2V IMPRESSION: Minimal evidence of osteoarthritis. Electronically signed by: Ori Perales MD 11/10/2024 10:16 AM EDT
--- OUTSIDE RECORDS SUMMARY | 2024-11-10 10:38 | XMS_ITS | Clinical Summary ---
Author Organization [facility] Address [address] [place] [address] Phone Care Team Providers Care Gandy Dancer Name Role Phone Anne Ortiz MD Primary Care Provider [phone] Surgical History Surgery Date Site/Laterality Comments STEREOTACTIC CORE BIOPSY Right Family History Medical History Relation Name Comments Breast cancer Daughter Relation Name Status Comments Daughter Social History Tobacco Use Types Packs/Day Years Used Date Smoking Tobacco: Never Assessed Comments No Sex and Gender Information Value Date Recorded Sex Assigned at Female 06/11/2024 11:37 AM EST Legal Sex Female 11:11 PM EST Gender Identity Not on file Sexual Orientation Not on file Obstetrics History Para Term AB IAB SAB Ectopic Multiple Livin g Live Births 4 Last Filed Vital Signs Vital Sign Reading Time Taken Comments Blood Pressure - - Pulse - - Temperature - - Respiratory Rate - - Oxygen Saturation - - Inhaled Oxygen Concentration - - Weight - - Height 154.9 cm (5' 1 ) 06/18/2024 8:54 AM EST Body Mass Index - - Plan of Treatment Health Maintenance Due Date Last Done Comments Falls Risk Assessment 03/25/2022 Hepatitis C Screening 03/25/2022 Medicare Annual Wellness Visit 03/25/2022 Osteoporosis Screening (Bone Density Screening) 03/25/2022 Social Influencers of Health Screening 03/25/2022 RSV Immunization Adult Patients (1 - 1-dose 75+ series) 07/05/2023 COVID-19 Vaccine ( season) 2023 01/26/2022, 06/28/2021, 03/08/2021, Additional history exists Depression Screening 04/22/2024 Influenza Vaccine (#1) 2024 04/29/2018 Cholesterol Screening (Lipid Panel) 12/21/2025 12/21/2020 DTaP,Tdap,and Td Vaccines (5 - Td or Tdap) 08/01/2032 08/01/2022, 05/27/2012, 11/02/1999, Additional history exists MMR Vaccines Aged Out 05/01/1994 No longer eligi ble based on patient's age to complete this topic Hepatitis B Vaccines Completed 03/18/2007, 12/14/1999, 11/02/1999 Pneumococcal Vaccine: 50+ Years Completed 04/29/2018, 11/02/2016, 09/13/2015, Additional history exists Zoster Vaccines Completed 10/03/2022, 07/21, 08/15/2015 Breast Cancer Screening Discontinued 06/18/19, 06/12/2023, 06/07/2022, Additional history exists HIB Vaccines Aged Out [...] patient's age to complete this topic Meningococcal B Vaccine Aged Out No l onger eligible based on patient's age to complete this topic RSV Immunization Patients Under 20 months Aged Out No longer eligible based on patient's age to complete this topic Varicella Vaccines Aged Out No longer eligible based on patient's age to complete this topic Procedures Procedure Name Priority Date/Time Associated Diagnosis Comments MG MAMMO DIGITAL SCREENING W NETO BILAT Routine 06/18/2024 8:59 AM EST Encounter for screening mammogram for breast cancer from Last 3 Months or Most Recently Relevant to Health Maintenance Results * MG Mammo Digital Screening w Neto bilat (06/18/2024 8:59 AM EST) Anatomical Region Laterality Modality Breast Bilateral Mammography 06/18/2024 11:2 8 AM EST Impressions 06/18/2024 11:48 AM EST No mammographic evidence of malignancy. No suspicious interval change. A negative mammogram in the presence of a clinically suspicious palpable abnormality does not preclude the possibility of malignancy or alter the indications for biopsy. ASSESSMENT: BI-RADS 2: BENIGN RECOMMENDATION(S): 1: Routine screening mammogram BILATERAL in 1 year. -------- FINAL REPORT -------- Dictated By: Chandu Bernardo Dictated Date: 06/18/2024 11:28 ET Assigned Physician: Chandu Bernardo Reviewed and Electronically Signed By: Chandu Bernardo Signed Date: 06/18/2024 11:48 ET Workstation ID: [id number] Transcribed By: Self Edit Transcribed Date: 06/18/2024 11:28 ET Narrative 06/18/2024 11:48 AM EST EXAM: SCREENING MAMMOGRAPHY, BILATERAL HISTORY: SCREENING. Daughter with history of breast cancer. COMPARISON: 06/12/2023, 06/07/2022, 06/05/2021, 06/02/2020 TECHNIQUE: Synthesized CC and MLO projections of each breast. Tomosynthesis of each breast in the CC and MLO projections. ADDITIONAL IMAGING: None Computer-aided detection was employed with the [employer] AI 3-D. TISSUE DENSITY: There are scattered areas of fibroglandular density. (BI-RADS category B) FINDINGS: RIGHT BREAST: No suspicious mass. No suspicious calcification. No distortion. No change in a circumscribed 1 cm equal density oval mass in the 9 o'clock region 8 cm from the right nipple. No change in a 0.4 cm equal density asymmetry close to the chest wall in the slightly medial right breast 13 cm from the nipple which is likely a summation density. No change in the region of a biopsy site marker in the 10 o'clock position 13 cm from the nipple. LEFT BREAST: No suspicious mass. No suspicious grouped calcifications. No distortion. There are a few round calcifications in the outer left breast 8 cm from the nipple (38/61). These should be monitored at the time of annual screening. Procedure Note Chandu Bernardo MD - 06/18/2024 EXAM: SCREENING MAMMOGRAPHY, BILATERAL HISTORY: SCREENING. Daughter with history of breast cancer. COMPARISON: 06/12/2023, 06/07/2022, 06/05/2021, 06/02/2020 TECHNIQUE: Synthesized CC and MLO projections of each breast.Tomosynthesis of each breast in the CC and MLO projections. ADDITIONAL IMAGING: None Computer-aided detection was employed with the [employer] profound AI 3-D. TISSUE DENSITY: There are scattered areas of fibroglandular density.(BI-RADS category B) FINDINGS: RIGHT BREAST: No suspicious mass. No suspicious calcification. No distortion. Nochange in a circumscribed 1 cm equal density oval mass in the 9 o'clockregion 8 cm from the right nipple. No change in a 0.4 cm equal density asymmetry close to the chest wall inthe slightly medial right breast 13 cm from the nipple which is likely asummation density. No change in the region of a biopsy site marker in the 10 o'clock cm from the nipple. LEFT BREAST: No suspicious mass. No suspicious grouped calcifications. No distortion. There are a few round calcifications in the outer left breast 8 cm fromthe nipple (38/61). These should be monitored at the time of annualscreening. IMPRESSION: No mammographic evidence of malignancy. No suspicious interval change. A negative mammogram in the presence of a clinically suspicious palpableabnormality does not preclude the possibility of malignancy or alter theindications for biopsy. ASSESSMENT: BI-RADS 2: BENIGN RECOMMENDATION(S): 1: Routine screening mammogram BILATERAL in 1 year. -------- FINAL REPORT -------- Dictated By: Chandu Bernardo Dictated Date: 06/18/2024 11:28 ET Assigned Physician: Chandu Bernardo Reviewed and Electronically Signed By: Chandu Bernardo Signed Date: 06/18/2024 11:48 ET Workstation ID: [id number] Transcribed By: Self Edit Transcribed Date: 06/18/2024 11:28 ET us Self Referral Sppl IMG BI PROCEDURES Final Resul t from Last 3 Months or Most Recently Relevant to Health Maintenance Insurance MEDICAID - [place] [employer] MEDICARE Member Subscriber Plan / Payer (Ef fective 2013-Present) Name:Milagros Wright Relation to Subscriber:Self Name:Milagros Wright Payer ID:[id number] Group ID:[id number] Type:Not on file Address: [facility] [address] [address] Care Teams Gandy Dancer Relationship Specialty Start Date End Date Anne Ortiz MD [address] [place] [address] [place] [address] PCP - General Internal Medicine 06/18/24
--- OUTSIDE RECORDS SUMMARY | 2024-11-10 10:38 | XMS_ITS | Encounter Summary ---
Author Organization [facility] [facility] Address [address] [place] [address] [address] [place] [address] Care Team Providers Care Ux Information Architect Name Role Phone Unavailable Primary Care Provider Unavailabl e Reason for Visit * Reason Comments Med Refill Encounter Details Date Type Department Care Team (Late st Contact Info) Description 09/11/2022 Refill [facility] MEDICINE [address] [place] [address] Nita Oliveira DO [address] [place] [address] Social History Tobacco Use Types Packs/Day Years [...] Description 02/19/2025 8:00 AM EDT Office Visit [facility] ADULT DENTAL [address] [place] [address] Alba, Alcira [address] [place] [address] documented as of this encounter Visit Diagnoses Not on filedocumented in this encounter
== END 2024-11-10 09:51 | disposition home or self-care (01) ==
LOC: HO.HMGCX 09:50
PROVIDERS: PCP Internal Medicine; Visit Provider Internal Medicine
DX: M16.11 Unilateral primary osteoarthritis, right hip (principal)
CPT/HCPCS: 73502

== ENCOUNTER → 2024-11-10 09:57 | Outpatient (BNV) | payer OTHER, SELFPAY | PROVIDERS: PCP Internal Medicine; Visit Provider Radiology Diagnostic Radiology | DX: M16.11 Unilateral primary osteoarthritis, right hip (principal) | CPT/HCPCS: 73502 ==

== ENCOUNTER 2024-12-18 09:38 | Outpatient (REF) | payer OTHER, SELFPAY ==
--- OUTSIDE RECORDS SUMMARY | 2024-12-18 10:25 | XMS_ITS | Encounter Summary ---
Author Organization [email or web address] Address [address] [facility] 7t [place] [address] Care Team Providers Care Story Teller Name Role Phone Unavailable Primary Care Provider Unavailabl e Encounter Details Date Type Department Care Team (Latest Contact Info) Description 10/12/2020 Abstract [facility] CONVERSIONS Dental, Provider, DDS Social [...] Care Team ( st Contact Info) Description 02/19/2025 8:00 AM EDT Office Visit [facility] ADULT DENTAL [address] [place] [address] Mark Willisaris [address] [place] [address] documented as of this encounter Visit Diagnoses Not on filedocumented in this encounter
--- OUTSIDE RECORDS SUMMARY | 2024-12-18 10:25 | XMS_ITS | Encounter Summary ---
Author Organization [employer] Address [address] [facility] 7t [place] [address] Care Team Providers Care Enterprise Applications Manager Name Role Phone Unavailable Primary Care Provider Unavailabl e Encounter Details Date Type Department Care Team (Latest Contact Info) Description 01/02/2022 Abstract [facility] CONVERSIONS Dental, Provider, DDS Social History [...] Description 02/19/2025 8:00 AM EDT Office Visit [facility] ADULT DENTAL [address] [place] [address] Mark Willisaris [address] [place] [address] documented as of this encounter Visit Diagnoses Not on filedocumented in this encounter
--- OUTSIDE RECORDS SUMMARY | 2024-12-18 10:25 | XMS_ITS | Encounter Summary ---
Author Organization [email or web address] Address [address] [place] [address] 7t [place] [address] Care Team Providers Care Beater Machine Operator Name Role Phone Unavailable Primary Care Provider Unavailabl e Reason for Visit * Reason Comments Med Refill Encounter Details Date Type Department Care Team (Late st Contact Info) Description 05/29/2022 Refill [facility] CHC MED & PEDS [address] [place] [address] Jensen Low MD [address] [place] [address] Social History Tobacco Use Types Packs/Day Years [...] Description 02/19/2025 8:00 AM EDT Office Visit [facility] ADULT DENTAL [address] [place] [address] Alba, Alcira [address] [place] [address] documented as of this encounter Visit Diagnoses Not on filedocumented in this encounter
--- OUTSIDE RECORDS SUMMARY | 2024-12-18 10:25 | XMS_ITS | Encounter Summary ---
Author Organization [employer] Address [address] [facility] 7t [place] [address] Care Team Providers Care Extrusion Process Operator Name Role Phone Unavailable Primary Care Provider Unavailabl e Encounter Details Date Type Department Care Team (Latest Contact Info) Description 09/02/2018 Abstract [facility] CONVERSIONS Dental, Provider, DDS Social History [...] Description 02/19/2025 8:00 AM EDT Office Visit [facility] ADULT DENTAL [address] [place] [address] Mark Willisaris [address] [place] [address] documented as of this encounter Visit Diagnoses Not on filedocumented in this encounter
--- OUTSIDE RECORDS SUMMARY | 2024-12-18 10:25 | XMS_ITS | Encounter Summary ---
Author Organization [employer] Address [address] [place] [address] [address]t [place] [address] Care Team Providers Care Gutter Hanger Name Role Phone Unavailable Primary Care Provider Unavailabl e Reason for Visit * Reason Comments Med Refill Encounter Details Date Type Department Care Team (Late st Contact Info) Description 05/08/[address] [facility] CHC MED & PEDS [address] [place] [address] Jensen Low MD [address] [place] [address] Social History Tobacco Use Types Packs/Day Years [...] Description 02/19/2025 8:00 AM EDT Office Visit [facility] ADULT DENTAL [address] [place] [address] Alba, Alcira [address] [place] [address] documented as of this encounter Visit Diagnoses Not on filedocumented in this encounter
--- OUTSIDE RECORDS SUMMARY | 2024-12-18 10:25 | XMS_ITS | Encounter Summary ---
Author Organization [employer] Address [address] [place] [address] [address] [place] [address] Care Team Providers Care Parks And Recreation Manager Name Role Phone Unavailable Primary Care Provider Unavailabl e Reason for Visit * Reason Comments Med Refill Encounter Details Date Type Department Care Team (Late st Contact Info) Description 05/04/2022 Refill [facility] CHC MED & PEDS [address] [place] [address] Jensen Low MD [address] [place] [address] Social History Tobacco Use Types Packs/Day Years [...] Description 02/19/2025 8:00 AM EDT Office Visit [facility] ADULT DENTAL [address] [place] [address] Alba, Alcira [address] [place] [address] documented as of this encounter Visit Diagnoses Not on filedocumented in this encounter
--- OUTSIDE RECORDS SUMMARY | 2024-12-18 10:25 | XMS_ITS | Encounter Summary ---
Author Organization [employer] [facility] Address [address] [place] [address] [address]t [place] [address] Care Team Providers Care Baseball Player Name Role Phone Unavailable Primary Care Provider Unavailabl e Reason for Visit * Reason Comments Med Refill Encounter Details Date Type Department Care Team (Late st Contact Info) Description 09/11/2022 Refill [facility] MEDICINE [address] [place] [address] Nita Oliveira DO [address] [place] [address] Social History Tobacco Use Types Packs/Day Years [...] Description 02/19/2025 8:00 AM EDT Office Visit [facility] ADULT DENTAL [address] [place] [address] Alba, Alcira [address] [place] [address] documented as of this encounter Visit Diagnoses Not on filedocumented in this encounter
--- OUTSIDE RECORDS SUMMARY | 2024-12-18 10:26 | XMS_ITS | Clinical Summary ---
Author Organization [employer] Address [address] [facility] 7t [place] [address] Care Team Providers Care Wheel Tuner Name Role Phone Unavailable Primary Care Provider [...] Sign Reading Time Taken Comments Blood Pressure 124/70 08/07/2024 1:00 PM EDT Pulse 76 12/19/2023 2:23 PM EDT [...] Description 02/19/2025 8:00 AM EDT Office Visit [facility] ADULT DENTAL [address] [place] [address] Alba, Alcira [address] [place] [address] Health Maintenance Due Date Last Done Comments Depression Screening 1950 SDOH Screening 1950 Alcohol/Substance Use Screening 1960 Hepatitis C Screening 1966 RSV Patients and Patients Aged 60 years or older (1 - 1-dose 75+ series) 07/05/2023 COVID-19 Vaccine ( season) 2023 01/26/2022, 06/28/2021, 03/08/2021, Additional history exists Dental Oral Exam 08/06/2024 02/05/2024, 07/2022, 01/02/2022, Additional history exists Influenza Vaccine (#1) 2024 04/29/2018 Dental X-Ray: Bitewings 02/05/2025 02/05/20 24, 01/23/2023, 01/02/2022, Additional history exists Dental Prophylaxis 02/07/2025 08/07/2024, 1 , 01/23/2023, Additional history exists Tobacco Screening 08/07/2025 08/07/2024 Lipid Panel 12/21/2025 12/21/2020 Dental X-Ray: Full [...] Associated Diagnosis Comments PROPHYLAXIS - ADULT Routine 08/07/2024 1 :00 PM EDT Dental plaque BITEWINGS - 2 RADIOGRAPHIC IMAGES Routine 02/05/2024 10:00 AM EDT Generalized gingival recession, moderate Dental plaque Staining (discoloration) of teeth Missing teeth, acquired PERIODIC ORAL EVALUATION - ESTABLISHED PATIENT Routine 02/05/2024 10:00 AM EDT INTRAORAL - COMPLETE SERIES OF RADIOGRAPHIC IMAGES Routine 01/23/2023 10:00 [...] LAB SYSTEM LDL Cholesterol 76 mg/dL (calc) [facility] Comment: Reference range: <100 Desirable range <100 mg/dL for primary prevention; <70 mg/dL for patients with CHD or diabetic patients with > or = 2 CHD risk factors. LDL-C is now calculated using the Halima calculation, which is a validated novel method providing better accuracy than the Friedewald equation in the estimation of LDL-C. Marco SS et al. WILTON. 2013;310(19): 7738-6658 (http://education.[employer]/faq/CFA138) Non-HDL Cholesterol 95 <130 mg/dL (calc) [facility] Comment: For patients with diabetes plus 1 major ASCVD risk factor, treating to a non-HDL-C goal of <100 mg/dL (LDL-C of <70 mg/dL) is considered a therapeutic option. Triglycerides 105 <150 mg/dL [facility] 12/21/2020 8:37 AM EDT us Alexandra Marie MD LAB BLOOD ORDERABLES Final R esult [facility] [address] from Last 3 Months or Most Recently Relevant to Health Maintenance Insurance DENTAL - [facility]
[2024-12-18 11:12] LABS: Alanine Aminotransferase 19 U/L (0-31); Albumin Level 4.0 g/dL (3.5-5.0); Alkaline Phosphatase 106 U/L (39-117); Anion Gap 11 (12-20); Aspartate Amino Transferase 21 U/L (5-31); Blood Urea Nitrogen 16 mg/dL (9-16); Calcium 9.3 mg/dL (8.4-10.2); Carbon Dioxide 31 mmol/L (22-29); Chloride 106 mmol/L (96-108); Estimated Glomerular Filt Rate 57; Potassium 4.2 mmol/L (3.3-5.1); Sodium 144 mmol/L (135-145); Total Protein 7.5 g/dL (6.5-8.0)
== END 2024-12-18 09:39 | disposition home or self-care (01) ==
LOC: HO.LAB 09:38
PROVIDERS: PCP Internal Medicine; Visit Provider Internal Medicine
DX: R31.21 Asymptomatic microscopic hematuria (principal); E78.00 Pure hypercholesterolemia, unspecified; N28.1 Cyst of kidney, acquired; I10 Essential (primary) hypertension; H26.9 Unspecified cataract; J45.909 Unspecified asthma, uncomplicated; H42 Glaucoma in diseases classified elsewhere
CPT/HCPCS: 36415; 80053

== ENCOUNTER 2024-12-23 09:40 | Outpatient (RCR) | payer OTHER, SELFPAY ==
[2024-12-02 09:04] VITALS: BP 144/69; PULSE 66
== END 2025-01-25 08:21 | disposition home or self-care (01) ==
LOC: HO.PT 09:40
PROVIDERS: PCP Internal Medicine; Visit Provider Internal Medicine
DX: M25.551 Pain in right hip (principal); M70.61 Trochanteric bursitis, right hip
CPT/HCPCS: 97110; 97161; 97530